=== PATIENT | female | born 1955 | race American Indian/Alaskan Native ===

== ENCOUNTER 2019-03-14 10:26 | Inpatient (IN) | payer MEDICAID ==
[2019-03-14] MEDS ORDERED: ATROVENT IH ONE (12:49)
[2019-03-14] MEDS ORDERED: PROVENTIL IH ONE (12:49)
[2019-03-14] MEDS ORDERED: NORCO 5/325 PO ONE (12:50)
[2019-03-14] MEDS ORDERED: SOLU-Medrol IV ONE (12:50)
[2019-03-14] MEDS ORDERED: MAGNESIUM SULFATE 2GM/50ML 2 GM/50 ML BAG IV ONE (12:59)
--- NOTE | 2019-03-14 13:05 | Emergency Department Report ---
ED Shortness of Breath HPI - General Chief Complaint: Dyspnea/Respdistress Stated Complaint: COPD/BACK PAIN Time Seen by Provider: 03/14/19 12:38 Source: patient Mode of arrival: Ambulatory Limitations: No Limitations - History of Present Illness Initial Comments: 63-year-old female with past medical history of HIV (compliant with antiretrovirals), COPD (on 3 L of home oxygen), hepatitis C, breast cancer and lung cancer ( both currently in remission) presents to the Hospital with complaints of wheezing, cough, shortness of breath for over 2 weeks. Cough is occasionally productive of yellow sputum. No fever but chills reported. Patient states that her dyspnea worsens exertion and decreased exertional tolerance noted. He complains of a pulling sensation to her chest with deep inspiration and coughing. Denies previous history of intubations. Her doctors affiliated with [facility] also c/o of back pain for several months with recent mild dysuria as her medical record review, in December 2017 patient had a CD4 count of 127. She denies a diagnosis of AIDS and states she has only been diagnosed with HIV. She denies daily Bactrim or antibiotic use. Not recall if she has had a more recent CD4 count or viral load testing - Related Data Previous Rx's Medication Instructions Recorded Last Taken Type ALBUTEROL NEB's [Proventil 0.083% 2.5 mg IH TIDRT #60 nebu 10/29/18 Unknown Rx NEBS] Budesonide/Formoterol Fumarate 10.2 gm IH BID #60 hfa.aer.ad 10/29/18 Unknown Rx [Symbicort 160-4.5 Mcg Inhaler] Ipratropium/Albuterol Sulfate 1 ampul IH Q8HR #60 ampul.neb 10/29/18 Unknown Rx [DUONEB *Not for PRN Use*] Ondansetron [Zofran ODT TAB] 4 mg PO Q8HR #15 tab.rapdis 10/29/18 Unknown Rx Prednisone [predniSONE 10 mg 10 mg PO .TAPER #1 tab.ds.pk 10/29/18 Unknown Rx (6-Day Pack, 21 Tabs)] oxyCODONE /ACETAMINOPHEN [Percocet 2 tab PO Q6H PRN #12 tablet 10/29/18 Unknown Rx 5/325 mg] Albuterol Sulfate [Albuterol 0.63% 0.63 mg IH Q4HR PRN #2 ml 11/25/18 Unknown Rx NEBS] Albuterol Sulfate [Proair 90 mcg IH Q4HR PRN #2 aer.pow.ba 11/25/18 Unknown Rx Respiclick] Doxycycline [Vibramycin] 100 mg PO Q12HR #10 capsule 11/25/18 Unknown Rx Ipratropium [Atrovent NEB] 0.5 mg IH Q4HR #2 ml 11/25/18 Unknown Rx predniSONE [Deltasone] 40 mg PO QDAY #8 tab 11/25/18 Unknown Rx Allergies Allergy/AdvReac Type Severity Reaction Status Date / Time Penicillins Allergy Headache Verified 01/02/18 22:28 ED Review of Systems ROS: Stated complaint: COPD/BACK PAIN Other details as noted in HPI Comment: All other systems reviewed and negative ED Past Medical Hx - Past Medical History Hx Hypertension: Yes Hx CVA: No Hx Heart Attack/AMI: No Hx Congestive Heart Failure: No Hx Diabetes: No Hx Deep Vein Thrombosis: No Hx Pulmonary Embolism: No Hx GERD: No Hx Liver Disease: No Hx Renal Disease: No Hx Sickle Cell Disease: No Hx Arthritis: No Hx Headaches / Migraines: No Hx Seizures: No Hx Kidney Stones: No Hx Psychiatric Treatment: No Hx Asthma: Yes Hx COPD: Yes Hx Tuberculosis: No Hx Dementia: No Hx HIV: Yes Additional medical history: Breast cancer,lung cancer, Hep C - Surgical History Hx Coronary Stent: No Hx Open Heart Surgery: No Hx Pacemaker: No Hx Internal Defibrillator: No Hx Cholecystectomy: No Hx Appendectomy: No Hx Breast Surgery: Yes (right breast) Additional Surgical History: mastectomy right breast - Social History Smoking Status: Never Smoker Substance Use Type: None - Medications Home Medications: Home Medications Medication Instructions Recorded Confirmed Last Taken Type ALBUTEROL NEB's [Proventil 0.083% 2.5 mg IH TIDRT #60 nebu 10/29/18 Unknown Rx NEBS] Budesonide/Formoterol Fumarate 10.2 gm IH BID #60 hfa.aer.ad 10/29/18 Unknown Rx [Symbicort 160-4.5 Mcg Inhaler] Ipratropium/Albuterol Sulfate 1 ampul IH Q8HR #60 ampul.neb 10/29/18 Unknown Rx [DUONEB *Not for PRN Use*] Ondansetron [Zofran ODT TAB] 4 mg PO Q8HR #15 tab.rapdis 10/29/18 Unknown Rx Prednisone [predniSONE 10 mg 10 mg PO .TAPER #1 tab.ds.pk 10/29/18 Unknown Rx (6-Day Pack, 21 Tabs)] oxyCODONE /ACETAMINOPHEN [Percocet 2 tab PO Q6H PRN #12 tablet 10/29/18 Unknown Rx 5/325 mg] Albuterol Sulfate [Albuterol 0.63% 0.63 mg IH Q4HR PRN #2 ml 11/25/18 Unknown Rx NEBS] Albuterol Sulfate [Proair 90 mcg IH Q4HR PRN #2 aer.pow.ba 11/25/18 Unknown Rx Respiclick] Doxycycline [Vibramycin] 100 mg PO Q12HR #10 capsule 11/25/18 Unknown Rx Ipratropium [Atrovent NEB] 0.5 mg IH Q4HR #2 ml 11/25/18 Unknown Rx predniSONE [Deltasone] 40 mg PO QDAY #8 tab 11/25/18 Unknown Rx ED Physical Exam - General Limitations: No Limitations - Other Other exam information: General: No limitations, patient is alert in no acute distress Head exam: Atraumatic, normocephalic Eyes exam: Normal appearance ENT: Moist mucous membrane, normal oropharynx without thrush Neck exam: Normal inspection, full range of motion, no meningismus nontender Respiratory exam: Diminished bilateral breath sounds without wheezing, rales, or crackles. Positive tachypnea Cardiovascular: Normal rate and rhythm, normal heart sounds Abdomen: Soft, nondistended, and nontender, with normal bowel sounds, no rebound, or guarding Extremity: Full range of motion normal inspection no deformity, no calf tenderness or edema Back: Normal Inspection, full range of motion, no tenderness Neurologic: Alert, oriented x3, cranial nerves intact, no motor or sensory deficit Psychiatric: normal affect, normal mood Skin: Warm, dry, intact ED Course Vital Signs 03/14/19 03/14/19 03/14/19 10:41 12:48 13:03 Temperature 99.0 F Pulse Rate 116 H 74 Pulse Rate [ 95 H Anterior Bilateral Throughout] Respiratory 26 H 16 Rate Respiratory 20 Rate [Anterior Bilateral Throughout] Blood Pressure 126/84 107/75 [Right] O2 Sat by Pulse 93 96 Oximetry 03/14/19 14:29 Temperature Pulse Rate Pulse Rate [ 90 Anterior Bilateral Throughout] Respiratory Rate Respiratory 20 Rate [Anterior Bilateral Throughout] Blood Pressure [Right] O2 Sat by Pulse Oximetry ED Medical Decision Making - Lab Data Result diagrams: 03/14/19 12:52 03/14/19 12:58 Lab Results 03/14/19 03/14/19 03/14/19 Range/Units 12:52 12:58 12:58 WBC 4.2 L (4.5-11.0) K/mm3 RBC 4.27 (3.65-5.03) M/mm3 Hgb 13.3 (10.1-14.3) gm/dl Hct 40.6 (30.3-42.9) % MCV 95 (79-97) fl MCH 31 (28-32) pg MCHC 33 (30-34) % RDW 13.8 (13.2-15.2) % Plt Count 246 (140-440) K/mm3 Lymph % (Auto) 36.1 H (13.4-35.0) % [place] % (Auto) 8.3 H (0.0-7.3) % Eos % (Auto) 0.3 (0.0-4.3) % Baso % (Auto) 0.8 (0.0-1.8) % Lymph # 1.5 (1.2-5.4) K/mm3 [place] # 0.3 (0.0-0.8) K/mm3 Eos # 0.0 (0.0-0.4) K/mm3 Baso # 0.0 (0.0-0.1) K/mm3 Seg Neutrophils % 54.5 (40.0-70.0) % Seg Neutrophils # 2.3 (1.8-7.7) K/mm3 PT 12.7 (12.2-14.9) Sec. INR 0.90 (0.87-1.13) Sodium 141 (137-145) mmol/L Potassium 4.7 (3.6-5.0) mmol/L Chloride 102.7 (98-107) mmol/L Carbon Dioxide 30 (22-30) mmol/L Anion Gap 13 mmol/L BUN 8 (7-17) mg/dL Creatinine 0.5 L (0.7-1.2) mg/dL Estimated GFR > 60 ml/min BUN/Creatinine Ratio 16 % Glucose 96 (65-100) mg/dL Calcium 8.4 (8.4-10.2) mg/dL - EKG Data -: EKG Interpreted by Me EKG shows normal: sinus rhythm, axis (qrs 60), QRS complexes (qrsd 64), ST-T waves (no stemi) Rate: tachycardia (102) - Radiology Data Radiology results: report reviewed cxr pa and lat: + copd - Medical Decision Making improving but still significant dyspnea on exertion tx with mag, solumedrol, nebs no infiltrate will admit to hospitalist for copd exacerbation urine pending at dispo - Differential Diagnosis copd, pneumonia, pe, chf, bronchitis, uti Critical Care Time: No Critical care attestation.: If time is entered above; I have spent that time in minutes in the direct care of this critically ill patient, excluding procedure time. ED Disposition Clinical Impression: COPD exacerbation, HIV (human immunodeficiency virus infection) Disposition: 09 OP ADMIT IP TO THIS HOSP Is pt being admited?: Yes Condition: Stable Time of Disposition: 15:30 (Dr Yap/hosp)
[2019-03-14 13:06] LABS: Basophils % (Auto) 0.8 % (0.0-1.8); Eosinophils % (Auto) 0.3 % (0.0-4.3); Hematocrit 40.6 % (30.3-42.9); Hemoglobin 13.3 gm/dl (10.1-14.3); Lymphocytes # (Auto) 1.5 K/mm3 (1.2-5.4); Lymphocytes % (Auto) 36.1 % (13.4-35.0); Mean Corpuscular HGB Conc 33 % (30-34); Mean Corpuscular Volume 95 fl (79-97); Monocytes # (Auto) 0.3 K/mm3 (0.0-0.8); Monocytes % (Auto) 8.3 % (0.0-7.3); Platelet Count 246 K/mm3 (140-440); Red Blood Count 4.27 M/mm3 (3.65-5.03); Red Cell Distribution Width 13.8 % (13.2-15.2)
[2019-03-14 13:16] LABS: INR 0.9 (0.87-1.13)
[2019-03-14 13:26] LABS: BUN/Creatinine Ratio 16; Blood Urea Nitrogen 8 mg/dL (7-17); Calcium 8.4 mg/dL (8.4-10.2); Hemolysis Index 91
--- NOTE | 2019-03-14 14:37 | XRay Report ---
CHEST XRAY, 2 VIEWS: History: Short of breath, HIV, COPD. Findings: There is mild diffuse interstitial coarsening. The lungs are hyperexpanded but clear. No infiltrate, pleural fluid or pneumothorax is detected. Focal scarring in the right upper lobe is unchanged since 11/25/18. The cardiac silhouette and pulmonary vasculature are within normal limits for technique. The bony thorax is unremarkable. IMPRESSION: Changes consistent with COPD. No acute cardiopulmonary process.
[2019-03-14 15:50] LABS: Bilirubin,Urine NEG (Negative); Blood,Urine SM (Negative); Color,Urine Yellow (Yellow); Mucus,Urine FEW /HPF; Protein,Urine <15 mg/dL mg/dL (Negative); Urobilinogen,Urine < 2.0 mg/dL (<2.0)
--- NOTE | 2019-03-14 15:58 | History and Physical Report ---
History of Present Illness Chief complaint: I cant breathe, and it hurts History of present illness: 63 YO Female with HIV, COPD, Chronic Respiratory Failure on 3L Home Oxygen, HCV, BrCa, Lung Cancer presents to ED for evaluation. Pt states that she has experienced shortness of breath over the past 2 weeks, with increased productive cough productive of yellow sputum. Pt acknowledges increased nebulizer therapy without relief, dypsnea on exertion, decreased exercise tolerance, as well as worsening dypsnea at rest, and well as chest discomfort with deep breathing. Pt transported to [facility] ED via private vehicle. Pt seen and evaluated in ED and found to have Acute on Chronic Respiratory Failure secondary to COPD exacerbation, HIV syndrome. Pt admitted to Medical floor. Pt symptoms improved in ED with supplemental oxygen, nebulizer therapy. Pt denies fever, chills, CP, Palpitations, NVD, Trauma, Skin Rash, Hemoptysis, Syncope, or recent ill contacts. Prior admission on 10/28/18 reviewed. All listed medication reconciled at time of exam. Past History Past Medical History: cancer, COPD, hepatitis, HIV/AIDS Past Surgical History: Other (Right Mastectomy) Social history: Family history: hypertension Medications and Allergies Allergies Allergy/AdvReac Type Severity Reaction Status Date / Time Penicillins Allergy Headache Verified 01/02/18 22:28 Home Medications Medication Instructions Recorded Confirmed Last Taken Type Budesonide/Formoterol Fumarate 10.2 gm IH BID #60 hfa.aer.ad 10/29/18 03/14/19 Unknown Rx [Symbicort 160-4.5 Mcg Inhaler] Albuterol Sulfate [Albuterol 0.63% 0.63 mg IH Q4HR PRN #2 ml 11/25/18 03/14/19 Unknown Rx NEBS] Ipratropium [Atrovent NEB] 0.5 mg IH Q4HR #2 ml 11/25/18 03/14/19 Unknown Rx Dolutegravir [Tivicay] 50 mg PO DAILY 03/14/19 03/14/19 Unknown History Emtricitabine/Tenofov Alafenam 1 each PO DAILY 03/14/19 03/14/19 Unknown History [Descovy 200-25 mg Tablet] amLODIPine [Norvasc] 5 mg PO DAILY 03/14/19 03/14/19 Unknown History Review of Systems Constitutional: no weight loss, no weight gain, no fever, no chills, no sweats, no night sweats Ears, nose, mouth and throat: no ear pain, no tinnitis, no decreased hearing, no nose pain, no nasal congestion Breasts: no change in shape, no swelling, no mass Cardiovascular: no chest pain, no orthopnea, no palpitations, no rapid/irregular heart beat, no edema Respiratory: cough, cough with sputum, excessive sputum, shortness of breath, dyspnea on exertion, wheezing, pleurisy, no sleep apnea Gastrointestinal: no abdominal pain, no nausea, no vomiting, no diarrhea, no constipation Genitourinary Female: no pelvic pain, no menorrhagia, no difficulty voiding Rectal: no pain, no incontinence, no bleeding Musculoskeletal: no neck stiffness, no neck pain, no shooting arm pain, no low back pain, no shooting leg pain Integumentary: no rash, no pruritis, no redness, no sores, no wounds Neurological: no head injury, no transient paralysis, no paralysis, no weakness, no parathesias, no numbness Psychiatric: no anxiety, no change in sleep habits, no insomnia, no change in appetite, no suicidal ideation Endocrine: no cold intolerance, no polyphagia, no polydipsia, no nocturia, no flushing Hematologic/Lymphatic: no easy bruising, no easy bleeding, no lymphadenopathy, no lymphedema Allergic/Immunologic: no urticaria, no wheezing, no persistent infections Exam - Constitutional Vitals: Temp Pulse Resp BP Pulse Ox 99.0 F 90 20 107/75 96 03/14/19 10:41 03/14/19 14:29 03/14/19 14:29 03/14/19 12:48 03/14/19 12:48 General appearance: Present: mild distress, disheveled - EENT Eyes: Present: PERRL ENT: hearing intact, clear oral mucosa - Neck Neck: Present: supple, normal ROM - Respiratory Respiratory effort: labored Respiratory: bilateral: diminished, rhonchi - Cardiovascular Heart Sounds: Present: S1 & S2. Absent: rub, click - Extremities Extremities: pulses symmetrical, No edema Peripheral Pulses: within normal limits - Abdominal General gastrointestinal: Present: soft, non-tender, non-distended, normal bowel sounds Female genitourinary: Present: normal - Integumentary Integumentary: Present: clear, warm, dry - Musculoskeletal Musculoskeletal: gait normal, strength equal bilaterally - Psychiatric Psychiatric: appropriate mood/affect, intact judgment & insight - Neurologic Neurologic: CNII-XII intact, moves all extremities Results - Labs CBC & Chem 7: 03/14/19 12:52 03/14/19 12:58 Labs: Abnormal lab results 03/14/19 03/14/19 03/14/19 Range/Units 12:52 12:58 Unknown WBC 4.2 L (4.5-11.0) K/mm3 Lymph % (Auto) 36.1 H (13.4-35.0) % [place] % (Auto) 8.3 H (0.0-7.3) % Creatinine 0.5 L (0.7-1.2) mg/dL Ur Specific [place] 1.038 H (1.003-1.030) Assessment and Plan - Patient Problems (1) Acute and chronic respiratory failure Current Visit: Yes Status: Acute Qualifiers: Respiratory failure complication: hypoxia Qualified Code(s): J96.21 - Acute and chronic respiratory failure with hypoxia Plan to address problem: Supplemental oxygen, chest x ray, nebulizer therapy, NIPPV as clinically indicated, pulse oximetry, CT Angio chest, (2) COPD exacerbation Current Visit: Yes Status: Acute Plan to address problem: IV steroid therapy, IV antibiotic therapy, chest x ray, nebulizer therapy, NIPPV as clinically indicated, (3) HIV (human immunodeficiency virus infection) Current Visit: Yes Status: Acute Plan to address problem: continue HAART therapy, outpatient ID F/U care. (4) DVT prophylaxis Current Visit: Yes Status: Acute Plan to address problem: SCD to BLE while in bed. Pt ambulating independently
[2019-03-14] MEDS ORDERED: ZOFRAN IV PRN (16:02)
[2019-03-14] MEDS ORDERED: SODIUM CHLORIDE FLUSH SYRINGE 10 ML IV PRN (16:02)
[2019-03-14] MEDS ORDERED: NON-FORMULARY (Albuterol Sulfate [Albuterol 0.63% Nebs] 0.63 MG) IH PRN (16:02)
[2019-03-14] MEDS ORDERED: TYLENOL PO PRN (16:02)
[2019-03-14] MEDS ORDERED: PERCOCET 5/325 PO PRN (16:24)
[2019-03-14] MEDS: MORPHINE IV PRN ×2 (16:34→21:52)
[2019-03-14] MEDS ORDERED: PROVENTIL IH PRN (16:40)
[2019-03-14] MEDS: ATROVENT IH SCH ×3 (16:57→20:18)
[2019-03-14] MEDS: ZITHROMAX 500 MG in NACL 0.9% 250ML 250 ML IV SCH (17:42)
--- NOTE | 2019-03-14 17:44 | Cat Scan Report ---
PROCEDURE: CT ANGIO CHEST TECHNIQUE : Enhanced CT of the chest at 1.25 mm axial intervals following a pulmonary embolism protoc ol. Coronal and sagittal imaging were also obtained. Coronal oblique MIP projections were obtained. CT DOSE LENGTH PRODUCT: 365.4 mGycm CONTRAST: Intravenous contrast given HISTORY: dyspnea PRIORS: CT chest 10/28/2018 FINDINGS: There is no evidence for pulmonary embolism in the main pulmonary artery, right and left pulmonary ar teries or their major distributions. However, CT does not exclude distal pulmonary emboli. There is e nlargement of the main pulmonary artery trunk which is stable. It measures 4 cm in diameter. There is an incidental anatomic variant with the right subclavian artery extending off the aortic arc h, distal to the main 3 arteries and tracking posterior to the esophagus, unchanged. There are bullous changes present in both upper lobes medially. Linear scarring with surgical clips i n the lateral right upper lobe are noted. These findings are stable. Otherwise, the lung parenchyma are expanded and clear with no evidence for new parenchymal nodules, i nfiltrates, congestion, or pleural effusion. There is no evidence for mediastinal, hilar, or axillary adenopathy. No evidence for ventricular chamber enlargement is seen. Images through the lung bases include the upper abdomen which show atherosclerotic changes of the pro ximal abdominal aorta. The aorta measures 3.5 x 2.7 cm above the level of the renal arteries. There i s a 2.1 cm low-density cyst in the inferior spleen. Bony structures demonstrate a healed rib fracture involving the lateral right sixth rib, stable. IMPRESSION: 1. No evidence for pulmonary embolism. Stable exam 2. Stable enlarged pulmonary arterial trunk 3. Chronic scarring and bullous changes in the upper lobes This document is electronically signed by Rhianna Garcia MD., March 14 2019 05:42:29 PM ET
[2019-03-14] MEDS: BROVANA NEBU IH SCH (20:18)
[2019-03-14] MEDS: PULMICORT IH SCH (20:18)
[2019-03-14] MEDS: SODIUM CHLORIDE FLUSH SYRINGE 10 ML IV SCH (21:51)
[2019-03-14] MEDS ORDERED: NON-FORMULARY (Budesonide/Formoterol Fumarate [Symbicort 160-4.5 Mcg Inhaler] 10.2 GM) IH SCH (22:00)
[2019-03-15] MEDS: ATROVENT IH SCH ×4 (01:16→13:14)
[2019-03-15] MEDS: SOLU-Medrol IV SCH ×3 (01:17→21:21)
[2019-03-15 06:31] LABS: Basophils % (Auto) 0.2 % (0.0-1.8); Hematocrit 34.5 % (30.3-42.9); Hemoglobin 11.4 gm/dl (10.1-14.3); Lymphocytes # (Auto) 0.6 K/mm3 (1.2-5.4); Lymphocytes % (Auto) 18.4 % (13.4-35.0); Mean Corpuscular HGB Conc 33 % (30-34); Mean Corpuscular Volume 95 fl (79-97); Monocytes % (Auto) 1.3 % (0.0-7.3); Platelet Count 248 K/mm3 (140-440); Red Blood Count 3.65 M/mm3 (3.65-5.03)
[2019-03-15 06:53] LABS: BUN/Creatinine Ratio 25; Blood Urea Nitrogen 10 mg/dL (7-17); Calcium 8.4 mg/dL (8.4-10.2); Hemolysis Index 2
[2019-03-15] MEDS: PULMICORT IH SCH ×2 (07:31→20:02)
[2019-03-15] MEDS: BROVANA NEBU IH SCH ×2 (07:31→20:02)
[2019-03-15] MEDS: MORPHINE IV PRN ×2 (08:13→15:22)
[2019-03-15] MEDS ORDERED: EMTRIVA PO SCH (10:00)
[2019-03-15] MEDS ORDERED: TIVICAY PO SCH (10:00)
--- NOTE | 2019-03-15 10:08 | Progress Note ---
Assessment and Plan Assessment and plan: Acute on chronic resp failure due to COPD exacerbation supplemental Oxygen COPD exacerbation Solumedrol duoneb q 6h albuterol prn HIV/AIDS Cont HAART History of breast cancer history of lung cancer History Interval history: Less shortness of breath, Low back pain Hospitalist Physical - Physical exam Narrative exam: Gen: Not in acute distress, lying in bed HEENT: Normocephalic, atraumatic Neck: supple, no JVD Heart: S1 and S2 reg, no murmurs, rubs or gallop Lungs: Decreased breath sounds bilaterally, bilat rhonchi Abd: soft, non tender, non distended, normal BS Ext: No edema, no clubbing, no cyanosis, Musculosk: tender lower back Neuro: AAO x 3, no focal signs, moves all ext Psych:Normal mood - Constitutional Vitals: Temp Pulse Resp BP Pulse Ox 98.3 F 77 18 104/64 98 03/15/19 05:09 03/15/19 07:33 03/15/19 07:33 03/14/19 20:22 03/15/19 07:33 General appearance: Present: mild distress, disheveled Results - Labs CBC & Chem 7: 03/15/19 05:40 03/15/19 05:40 Labs: Laboratory Last Values WBC 3.2 K/mm3 (4.5-11.0) L 03/15/19 05:40 RBC 3.65 M/mm3 (3.65-5.03) 03/15/19 05:40 Hgb 11.4 gm/dl (10.1-14.3) 03/15/19 05:40 Hct 34.5 % (30.3-42.9) D 03/15/19 05:40 MCV 95 fl (79-97) 03/15/19 05:40 MCH 31 pg (28-32) 03/15/19 05:40 MCHC 33 % (30-34) 03/15/19 05:40 RDW 14.0 % (13.2-15.2) 03/15/19 05:40 Plt Count 248 K/mm3 (140-440) 03/15/19 05:40 Lymph % (Auto) 18.4 % (13.4-35.0) 03/15/19 05:40 [place] % (Auto) 1.3 % (0.0-7.3) 03/15/19 05:40 Eos % (Auto) 0.0 % (0.0-4.3) 03/15/19 05:40 Baso % (Auto) 0.2 % (0.0-1.8) 03/15/19 05:40 Lymph # 0.6 K/mm3 (1.2-5.4) L 03/15/19 05:40 [place] # 0.0 K/mm3 (0.0-0.8) 03/15/19 05:40 Eos # 0.0 K/mm3 (0.0-0.4) 03/15/19 05:40 Baso # 0.0 K/mm3 (0.0-0.1) 03/15/19 05:40 Seg Neutrophils % 80.1 % (40.0-70.0) H 03/15/19 05:40 Seg Neutrophils # 2.6 K/mm3 (1.8-7.7) 03/15/19 05:40 PT 12.7 Sec. (12.2-14.9) 03/14/19 12:58 INR 0.90 (0.87-1.13) 03/14/19 12:58 Sodium 141 mmol/L (137-145) 03/15/19 05:40 Potassium 4.2 mmol/L (3.6-5.0) 03/15/19 05:40 Chloride 102.1 mmol/L (98-107) 03/15/19 05:40 Carbon Dioxide 29 mmol/L (22-30) 03/15/19 05:40 Anion Gap 14 mmol/L 03/15/19 05:40 BUN 10 mg/dL (7-17) 03/15/19 05:40 Creatinine 0.4 mg/dL (0.7-1.2) L 03/15/19 05:40 Estimated GFR > 60 ml/min 03/15/19 05:40 BUN/Creatinine Ratio 25 % 03/15/19 05:40 Glucose 120 mg/dL (65-100) H 03/15/19 05:40 Calcium 8.4 mg/dL (8.4-10.2) 03/15/19 05:40 Urine Color Yellow (Yellow) 03/14/19 Unknown Urine Turbidity Clear (Clear) 03/14/19 Unknown Urine pH 5.0 (5.0-7.0) 03/14/19 Unknown Ur Specific [place] 1.038 (1.003-1.030) H 03/14/19 Unknown Urine Protein <15 mg/dl mg/dL (Negative) 03/14/19 Unknown Urine Glucose (UA) Neg mg/dL (Negative) 03/14/19 Unknown Urine Ketones 20 mg/dL (Negative) 03/14/19 Unknown Urine Blood Sm (Negative) 03/14/19 Unknown Urine Nitrite Neg (Negative) 03/14/19 Unknown Urine Bilirubin Neg (Negative) 03/14/19 Unknown Urine Urobilinogen < 2.0 mg/dL (<2.0) 03/14/19 Unknown Ur Leukocyte Esterase Neg (Negative) 03/14/19 Unknown Urine WBC (Auto) 4.0 /HPF (0.0-6.0) 03/14/19 Unknown Urine RBC (Auto) 5.0 /HPF (0.0-6.0) 03/14/19 Unknown U Epithel Cells (Auto) < 1.0 /HPF (0-13.0) 03/14/19 Unknown Urine Mucus Few /HPF 03/14/19 Unknown Active Medications - Current Medications Current Medications: Generic Name Dose Route Start Last Admin Trade Name Freq PRN Reason Stop Dose Admin Acetaminophen 650 mg 03/14/19 16:02 Tylenol PO Q4H PRN Pain MILD(1-3)/Fever >100.5/DE LEON Albuterol 2.5 mg 03/14/19 16:40 03/14/19 16:57 Proventil IH 2.5 mg Q4HRT PRN Administration Shortness Of Breath Amlodipine Besylate 5 mg 03/15/19 10:00 Norvasc PO DAILY ELLIE Arformoterol Tartrate 15 mcg 03/14/19 20:00 03/15/19 07:31 Brovana Nebu IH 15 mcg Q12HRT ELLIE Administration Budesonide 1 mg 03/14/19 20:00 03/15/19 07:31 Pulmicort IH 1 mg Q12HRT ELLIE Administration Azithromycin 500 mg/ Sodium 250 mls @ 250 mls/hr 03/14/19 18:00 03/14/19 17:42 Chloride IV 250 mls/hr Q24H ELLIE Administration Ipratropium [place] 0.5 mg 03/15/19 08:00 03/15/19 07:31 Atrovent IH 0.5 mg TIDRT ELLIE Administration Methylprednisolone Sodium Succinate 40 mg 03/15/19 01:00 03/15/19 01:17 Solu-Medrol IV 40 mg Q12H ELLIE Administration Miscellaneous Medication 1 each 03/15/19 10:00 Emtricitabine/Tenofov Alafenam [Descovy 200-25 Mg Tablet] PO DAILY [facility] Morphine Sulfate 2 mg 03/14/19 16:23 03/15/19 08:13 Morphine IV 2 mg Q4H PRN Administration Pain, Moderate (4-6) Ondansetron HCl 4 mg 03/14/19 16:02 03/15/19 08:13 Zofran IV 4 mg Q8H PRN Administration Nausea And Vomiting Oxycodone/Acetaminophen 1 tab 03/14/19 16:24 Percocet 5/325 PO Q6H PRN Pain, Moderate (4-6) Sodium Chloride 10 ml 03/14/19 22:00 03/14/19 21:51 Sodium Chloride Flush Syringe 10 Ml IV 10 ml BID ELLIE Administration Sodium Chloride 10 ml 03/14/19 16:02 Sodium Chloride Flush Syringe 10 Ml IV PRN PRN LINE FLUSH
[2019-03-15 11:30] LABS: Bilirubin,Urine NEG (Negative); Blood,Urine NEG (Negative); Color,Urine Yellow (Yellow); Mucus,Urine 2+ /HPF; Urobilinogen,Urine < 2.0 mg/dL (<2.0)
--- NOTE | 2019-03-15 13:35 | XRay Report ---
AP AND LATERAL LUMBOSACRAL SPINE: History: Low back pain. Osteopenia is evident. No evidence for compression deformity, subluxation or bone lesion. Mild diffuse facet arthropathy is noted. The disc spaces are normal height. IMPRESSION: Osteopenia. Mild lumbar spondylosis.
[2019-03-15] MEDS: NORVASC PO SCH (15:22)
[2019-03-15] MEDS: SODIUM CHLORIDE FLUSH SYRINGE 10 ML IV SCH ×2 (19:52→21:22)
[2019-03-15] MEDS: ZITHROMAX 500 MG in NACL 0.9% 250ML 250 ML IV SCH (19:52)
[2019-03-15] MEDS: DUONEB *Not for PRN Use IH SCH (20:22)
[2019-03-16] MEDS: SOLU-Medrol IV SCH ×3 (04:29→20:42)
[2019-03-16] MEDS: DUONEB *Not for PRN Use IH SCH ×4 (08:22→21:51)
[2019-03-16] MEDS: PULMICORT IH SCH ×2 (08:22→19:35)
[2019-03-16] MEDS: BROVANA NEBU IH SCH ×2 (08:22→19:35)
[2019-03-16] MEDS: MORPHINE IV PRN ×2 (09:10→15:36)
[2019-03-16] MEDS: ZOFRAN IV PRN ×2 (09:10→15:36)
--- NOTE | 2019-03-16 10:14 | Progress Note ---
Assessment and Plan Assessment and plan: Acute on chronic resp failure due to COPD exacerbation supplemental Oxygen COPD exacerbation Solumedrol duoneb q 6h albuterol prn Acute bronchitis Fever Obtain blood culture HIV/AIDS Cont HAART History of breast cancer history of lung cancer History Interval history: Less shortness of breath, Low back pain Hospitalist Physical - Physical exam Narrative exam: Gen: Not in acute distress, lying in bed HEENT: Normocephalic, atraumatic Neck: supple, no JVD Heart: S1 and S2 reg, no murmurs, rubs or gallop Lungs: Decreased breath sounds bilaterally, bilat rhonchi Abd: soft, non tender, non distended, normal BS Ext: No edema, no clubbing, no cyanosis, Musculosk: tender lower back Neuro: AAO x 3, no focal signs, moves all ext Psych:Normal mood - Constitutional Vitals: Temp Pulse Resp BP Pulse Ox 98.5 F 75 20 106/75 97 03/16/19 04:19 03/16/19 08:50 03/16/19 08:50 03/16/19 04:19 03/16/19 08:25 Results - Labs CBC & Chem 7: 03/15/19 05:40 03/15/19 05:40 Labs: Laboratory Last Values WBC 3.2 K/mm3 (4.5-11.0) L 03/15/19 05:40 RBC 3.65 M/mm3 (3.65-5.03) 03/15/19 05:40 Hgb 11.4 gm/dl (10.1-14.3) 03/15/19 05:40 Hct 34.5 % (30.3-42.9) D 03/15/19 05:40 MCV 95 fl (79-97) 03/15/19 05:40 MCH 31 pg (28-32) 03/15/19 05:40 MCHC 33 % (30-34) 03/15/19 05:40 RDW 14.0 % (13.2-15.2) 03/15/19 05:40 Plt Count 248 K/mm3 (140-440) 03/15/19 05:40 Lymph % (Auto) 18.4 % (13.4-35.0) 03/15/19 05:40 [place] % (Auto) 1.3 % (0.0-7.3) 03/15/19 05:40 Eos % (Auto) 0.0 % (0.0-4.3) 03/15/19 05:40 Baso % (Auto) 0.2 % (0.0-1.8) 03/15/19 05:40 Lymph # 0.6 K/mm3 (1.2-5.4) L 03/15/19 05:40 [place] # 0.0 K/mm3 (0.0-0.8) 03/15/19 05:40 Eos # 0.0 K/mm3 (0.0-0.4) 03/15/19 05:40 Baso # 0.0 K/mm3 (0.0-0.1) 03/15/19 05:40 Seg Neutrophils % 80.1 % (40.0-70.0) H 03/15/19 05:40 Seg Neutrophils # 2.6 K/mm3 (1.8-7.7) 03/15/19 05:40 PT 12.7 Sec. (12.2-14.9) 03/14/19 12:58 INR 0.90 (0.87-1.13) 03/14/19 12:58 Sodium 141 mmol/L (137-145) 03/15/19 05:40 Potassium 4.2 mmol/L (3.6-5.0) 03/15/19 05:40 Chloride 102.1 mmol/L (98-107) 03/15/19 05:40 Carbon Dioxide 29 mmol/L (22-30) 03/15/19 05:40 Anion Gap 14 mmol/L 03/15/19 05:40 BUN 10 mg/dL (7-17) 03/15/19 05:40 Creatinine 0.4 mg/dL (0.7-1.2) L 03/15/19 05:40 Estimated GFR > 60 ml/min 03/15/19 05:40 BUN/Creatinine Ratio 25 % 03/15/19 05:40 Glucose 120 mg/dL (65-100) H 03/15/19 05:40 Calcium 8.4 mg/dL (8.4-10.2) 03/15/19 05:40 Urine Color Yellow (Yellow) 03/14/19 Unknown Urine Turbidity Clear (Clear) 03/14/19 Unknown Urine pH 5.0 (5.0-7.0) 03/14/19 Unknown Ur Specific [place] 1.038 (1.003-1.030) H 03/14/19 Unknown Urine Protein <15 mg/dl mg/dL (Negative) 03/14/19 Unknown Urine Glucose (UA) Neg mg/dL (Negative) 03/14/19 Unknown Urine Ketones 20 mg/dL (Negative) 03/14/19 Unknown Urine Blood Sm (Negative) 03/14/19 Unknown Urine Nitrite Neg (Negative) 03/14/19 Unknown Urine Bilirubin Neg (Negative) 03/14/19 Unknown Urine Urobilinogen < 2.0 mg/dL (<2.0) 03/14/19 Unknown Ur Leukocyte Esterase Neg (Negative) 03/14/19 Unknown Urine WBC (Auto) 4.0 /HPF (0.0-6.0) 03/14/19 Unknown Urine RBC (Auto) 5.0 /HPF (0.0-6.0) 03/14/19 Unknown U Epithel Cells (Auto) < 1.0 /HPF (0-13.0) 03/14/19 Unknown Urine Mucus Few /HPF 03/14/19 Unknown Active Medications - Current Medications Current Medications: Generic Name Dose Route Start Last Admin Trade Name Freq PRN Reason Stop Dose Admin Acetaminophen 650 mg 03/14/19 16:02 Tylenol PO Q4H PRN Pain MILD(1-3)/Fever >100.5/DE LEON Albuterol 2.5 mg 03/14/19 16:40 03/14/19 16:57 Proventil IH 2.5 mg Q4HRT PRN Administration Shortness Of Breath Albuterol/Ipratropium 1 ampul 03/15/19 20:00 03/16/19 08:22 Duoneb *Not For Prn Use* IH 1 ampul Q6HRT ELLIE Administration Amlodipine Besylate 5 mg 03/15/19 10:00 03/15/19 15:22 Norvasc PO 5 mg DAILY ELLIE Administration Arformoterol Tartrate 15 mcg 03/14/19 20:00 03/16/19 08:22 Brovana Nebu IH 15 mcg Q12HRT ELLIE Administration Budesonide 1 mg 03/14/19 20:00 03/16/19 08:22 Pulmicort IH 1 mg Q12HRT ELLIE Administration Azithromycin 500 mg/ Sodium 250 mls @ 250 mls/hr 03/14/19 18:00 03/15/19 19:52 Chloride IV 250 mls/hr Q24H ELLIE Administration Methylprednisolone Sodium Succinate 40 mg 03/15/19 20:00 03/16/19 04:29 Solu-Medrol IV 40 mg Q8H ELLIE Administration Miscellaneous Medication 1 each 03/15/19 10:00 Emtricitabine/Tenofov Alafenam [Descovy 200-25 Mg Tablet] PO DAILY [facility] Morphine Sulfate 2 mg 03/14/19 16:23 03/16/19 09:10 Morphine IV 2 mg Q4H PRN Administration Pain, Moderate (4-6) Ondansetron HCl 4 mg 03/15/19 18:05 03/16/19 09:10 Zofran IV 4 mg Q6H PRN Administration Nausea And Vomiting Oxycodone/Acetaminophen 1 tab 03/14/19 16:24 03/15/19 12:14 Percocet 5/325 PO 1 tab Q6H PRN Administration Pain, Moderate (4-6) Sodium Chloride 10 ml 03/14/19 22:00 03/15/19 21:22 Sodium Chloride Flush Syringe 10 Ml IV 10 ml BID ELLIE Administration Sodium Chloride 10 ml 03/14/19 16:02 Sodium Chloride Flush Syringe 10 Ml IV PRN PRN LINE FLUSH
[2019-03-16] MEDS ORDERED: AFLURIA QUAD 2018-2019 SYRINGE IM ONE (12:00)
[2019-03-16] MEDS: NORVASC PO SCH (13:00)
[2019-03-16] MEDS: TIVICAY PO SCH (15:21)
[2019-03-16] MEDS: SODIUM CHLORIDE FLUSH SYRINGE 10 ML IV SCH ×2 (15:22→21:21)
[2019-03-16] MEDS: NON-FORMULARY (Emtricitabine/Tenofov Alafenam [Descovy 200-25 Mg Tablet] 1 EACH) PO SCH (15:24)
[2019-03-16] MEDS: PROTONIX IV SCH (17:54)
[2019-03-16] MEDS: ZITHROMAX 500 MG in NACL 0.9% 250ML 250 ML IV SCH (17:54)
[2019-03-17] MEDS: DUONEB *Not for PRN Use IH SCH ×3 (02:03→13:19)
[2019-03-17] MEDS: SOLU-Medrol IV SCH ×2 (04:34→13:04)
[2019-03-17] MEDS: MORPHINE IV PRN (07:56)
[2019-03-17] MEDS: ZOFRAN IV PRN (08:28)
[2019-03-17] MEDS: PULMICORT IH SCH (08:49)
[2019-03-17] MEDS: BROVANA NEBU IH SCH (08:49)
[2019-03-17] MEDS: NORVASC PO SCH (09:43)
[2019-03-17] MEDS: PROTONIX IV SCH (09:44)
[2019-03-17] MEDS: TIVICAY PO SCH (09:46)
[2019-03-17] MEDS: NON-FORMULARY (Emtricitabine/Tenofov Alafenam [Descovy 200-25 Mg Tablet] 1 EACH) PO SCH (09:46)
[2019-03-17] MEDS: SODIUM CHLORIDE FLUSH SYRINGE 10 ML IV SCH (09:47)
[2019-03-17] MEDS ORDERED: ZITHROMAX PO SCH (10:00)
--- NOTE | 2019-03-17 12:31 | Discharge Summary ---
Providers - Providers Date of Admission: 03/14/19 16:02 Date of discharge: 03/17/19 Attending physician: JANICE DUFFY Primary care physician: MAJOR ROMERO MD Hospitalization Condition: Fair Hospital course: Patient is 63 yo female with HIV, COPD, Chronic Respiratory Failure on 3L Home Oxygen, HCV, breast cancer, lung cancer. She presented to ED with shortness of breath, cough with yellow sputum. She was seen and evaluated in ED and diagnosed with acute on chronic respiratory failure due to COPD exacerbation. She was started on solu-medrol, Duoneb and admitted. She improved in few days, shortness of breath improved. She was re-evaluated on 03/17, was close to baseline, then discharged to follow as outpatient. Total time spent on discharge, 32 mins. Disposition: TO HOME OR SELFCARE - Discharge Diagnoses (1) Acute and chronic respiratory failure Status: Acute Qualifiers: Respiratory failure complication: hypoxia Qualified Code(s): J96.21 - Acute and chronic respiratory failure with hypoxia (2) COPD exacerbation Status: Acute (3) HIV (human immunodeficiency virus infection) Status: Acute (4) History of cancer Status: Acute (5) Shortness of breath Status: Acute (6) Lung cancer Status: Acute (7) Breast cancer Status: Acute Core Measure Documentation - Palliative Care Palliative Care/ Comfort Measures: Not Applicable - Core Measures Any of the following diagnoses?: none Exam - Constitutional Vitals: Temp Pulse Resp BP Pulse Ox 98.8 F 64 18 147/95 98 03/17/19 05:28 03/17/19 09:43 03/17/19 08:49 03/17/19 09:43 03/17/19 08:52 Plan Activity: no restrictions Diet: low fat, low cholesterol, low salt Additional Instructions: 1.Follow up with PCP in 1 week. 2.Continue home Oxygen continuous. Follow up with: PRIMARY CARE, [Primary Care Provider] - 7 Days Forms: Accompanied Note, Work/School Release Form(ED) Prescriptions: Albuterol Sulfate [Albuterol 0.63% NEBS] 0.63 mg IH Q4HR PRN 30 Days ml PRN Reason: Wheezing Famotidine [Pepcid] 20 mg PO BID #30 tablet Promethazine [Phenergan] 25 mg PO Q6HR PRN #20 tab PRN Reason: Nausea or vomiting Prednisone [predniSONE 5 mg (6-Day Pack, 21 Tabs)] 5 mg PO .TAPER #1 tab.ds.pk
[2019-03-17 12:33] VITALS: BP 115/74
[2019-03-18] MEDS ORDERED: PROTONIX PO SCH (10:00)
== END 2019-03-17 14:25 | disposition home or self-care (01) | DRG 189 ==
LOC: ED 10:26 → 3A 16:02
PROVIDERS: ADMIT Internal Medicine; ATTEND Internal Medicine
DX: J96.21 Acute and chronic respiratory failure with hypoxia (principal); B20 Human immunodeficiency virus [HIV] disease; J44.1 Chronic obstructive pulmonary disease with (acute) exacerbation; J20.9 Acute bronchitis, unspecified; J44.0 Chronic obstructive pulmonary disease with (acute) lower respiratory infection; B19.20 Unspecified viral hepatitis C without hepatic coma; I10 Essential (primary) hypertension; Z85.3 Personal history of malignant neoplasm of breast; Z85.118 Personal history of other malignant neoplasm of bronchus and lung; Z99.81 Dependence on supplemental oxygen; Z90.11 Acquired absence of right breast and nipple; Z82.49 Family history of ischemic heart disease and other diseases of the circulatory system; Z88.0 Allergy status to penicillin; Z79.899 Other long term (current) drug therapy
CPT/HCPCS: 36415; 71046; 71275; 72100; 80048; 81001; 85025; 85610; 87040; 87116; 90686; 93005; 93010; 94640; 94644; 94760; G0378; C9113; J0456; J2270; J2405; J2920; J2930; J3475; J7050; Q9967

== ENCOUNTER 2019-06-28 20:56 | Inpatient (IN) | payer MEDICAID ==
[2019-06-28] MEDS ORDERED: ATROVENT IH ONE (21:02)
[2019-06-28] MEDS ORDERED: PROVENTIL IH ONE (21:02)
[2019-06-28] MEDS ORDERED: NACL 0.9% 500 ML 500 ML IV ONE ×2 (21:02→21:04)
[2019-06-28] MEDS ORDERED: BABY ASPIRIN PO ONE (21:05)
--- NOTE | 2019-06-28 21:05 | Emergency Department Report ---
ED Shortness of Breath HPI - General Chief Complaint: Dyspnea/Respdistress Stated Complaint: MEAGAN Time Seen by Provider: 06/28/19 21:01 Source: patient, family, EMS (ems notes not available at time of chart dictation), RN notes reviewed, old records reviewed Mode of arrival: Stretcher Limitations: No Limitations - History of Present Illness Initial Comments: Verbal report received from EMS. This is a 64-year-old female. She reportedly follows at [facility]. Her past medical history includes HIV, COPD, hepatitis C, breast cancer, lung ca ncer, chronic respiratory failure, on 3 L of home oxygen The patient is known to this provider previously. The patient is brought to the hospital by EMS for shortness of breath. Apparently, the patient was saturating at 88% on room air, and tripoding upon EMS arrival. EMS gave 20 mg of Decadron in the field, started CPAP, gave albuterol, and magnesium. The patient indicates that she is improved but still symptomatic. She indicates that she has shortness of breath, dry cough, and central chest wall pain. She indicates the pain does not radiate anywhere. She cannot tell me if she always has this pain with her presumed COPD exacerbations. The patient indicates that her shortness of breath is constant, worsens with physical exertion decreases with rest, and decreases with the aforementioned therapies. Symptoms started earlier on today. MD Complaint: shortness of breath, cough, chest pain Improves With: oxygen, rest, bronchodilators, upright position, medication Worsens With: exertion Known History Of: COPD, HIV - Related Data Home Oxygen Therapy: Yes Home Oxygen Amount: 3 Liters Home Medications Medication Instructions Recorded Confirmed Last Taken Dolutegravir [Tivicay] 50 mg PO DAILY 03/14/19 03/14/19 Unknown Emtricitabine/Tenofov Alafenam 1 each PO DAILY 03/14/19 03/14/19 Unknown [Descovy 200-25 mg Tablet] amLODIPine [Norvasc] 5 mg PO DAILY 03/14/19 03/14/19 Unknown Previous Rx's Medication Instructions Recorded Last Taken Type Budesonide/Formoterol Fumarate 10.2 gm IH BID #60 hfa.aer.ad 10/29/18 Unknown Rx [Symbicort 160-4.5 Mcg Inhaler] Ipratropium [Atrovent NEB] 0.5 mg IH Q4HR #2 ml 11/25/18 Unknown Rx Albuterol Sulfate [Albuterol 0.63% 0.63 mg IH Q4HR PRN 30 Days ml 03/17/19 Unknown Rx NEBS] Famotidine [Pepcid] 20 mg PO BID #30 tablet 03/17/19 Unknown Rx Prednisone [predniSONE 5 mg (6-Day 5 mg PO .TAPER #1 tab.ds.pk 03/17/19 Unknown Rx Pack, 21 Tabs)] Promethazine [Phenergan] 25 mg PO Q6HR PRN #20 tab 03/17/19 Unknown Rx Allergies Allergy/AdvReac Type Severity Reaction Status Date / Time Penicillins Allergy Headache Verified 01/02/18 22:28 ED Review of Systems ROS: Stated complaint: MEAGAN Other details as noted in HPI Comment: Unobtainable due to pts medical conditions Constitutional: malaise Eyes: denies: eye discharge ENT: denies: epistaxis Respiratory: shortness of breath, wheezing Cardiovascular: chest pain Gastrointestinal: denies: abdominal pain Neurological: weakness ED Past Medical Hx - Past Medical History Hx Hypertension: Yes Hx CVA: No Hx Heart Attack/AMI: No Hx Congestive Heart Failure: No Hx Diabetes: No Hx Deep Vein Thrombosis: No Hx Pulmonary Embolism: No Hx GERD: No Hx Liver Disease: Yes (hepatitis C) Hx Renal Disease: No Hx Sickle Cell Disease: No Hx Arthritis: No Hx Headaches / Migraines: No Hx Seizures: No Hx Kidney Stones: No Hx Psychiatric Treatment: No Hx Asthma: Yes Hx COPD: Yes Hx Tuberculosis: No Hx Dementia: No Hx HIV: Yes Additional medical history: Breast cancer,lung cancer, Hep C - Surgical History Hx Coronary Stent: No Hx Open Heart Surgery: No Hx Pacemaker: No Hx Internal Defibrillator: No Hx Cholecystectomy: No Hx Appendectomy: No Hx Breast Surgery: Yes (right breast) Additional Surgical History: mastectomy right breast - Social History Smoking Status: Former Smoker Substance Use Type: None - Medications Home Medications: Home Medications Medication Instructions Recorded Confirmed Last Taken Type Budesonide/Formoterol Fumarate 10.2 gm IH BID #60 hfa.aer.ad 10/29/18 03/14/19 Unknown Rx [Symbicort 160-4.5 Mcg Inhaler] Ipratropium [Atrovent NEB] 0.5 mg IH Q4HR #2 ml 11/25/18 03/14/19 Unknown Rx Dolutegravir [Tivicay] 50 mg PO DAILY 03/14/19 03/14/19 Unknown History Emtricitabine/Tenofov Alafenam 1 each PO DAILY 03/14/19 03/14/19 Unknown History [Descovy 200-25 mg Tablet] amLODIPine [Norvasc] 5 mg PO DAILY 03/14/19 03/14/19 Unknown History Albuterol Sulfate [Albuterol 0.63% 0.63 mg IH Q4HR PRN 30 Days ml 03/17/19 Unk nown Rx NEBS] Famotidine [Pepcid] 20 mg PO BID #30 tablet 03/17/19 Unknown Rx Prednisone [predniSONE 5 mg (6-Day 5 mg PO .TAPER #1 tab.ds.pk 03/17/19 Unknown Rx Pack, 21 Tabs)] Promethazine [Phenergan] 25 mg PO Q6HR PRN #20 tab 03/17/19 Unknown Rx ED Physical Exam - General Limitations: Physical Limitation General appearance: alert, anxious, in distress - Head Head exam: Present: atraumatic, normocephalic - Eye Eye exam: Present: normal appearance, EOMI - ENT ENT exam: Present: normal orophraynx, mucous membranes moist, normal external ear exam - Neck Neck exam: Present: normal inspection, full ROM. Absent: tenderness, m eningismus - Respiratory Respiratory exam: Present: respiratory distress, rhonchi, decreased breath sounds - Cardiovascular Cardiovascular Exam: Present: normal rhythm, tachycardia, normal heart sounds. Absent: systolic murmur, diastolic murmur, rubs, gallop - GI/Abdominal GI/Abdominal exam: Present: soft. Absent: distended, tenderness, guarding, rebound, rigid, pulsatile mass - Extremities Exam Extremities exam: Present: normal inspection, full ROM, other (2+ pulses noted in the bilateral upper, lower extremities. Compartments soft. No long bony tenderness. The pelvis is stable.). Absent: pedal edema, joint swelling, calf tenderness - Back Exam Back exam: Present: normal inspection, full ROM. Absent: tenderness, CVA tenderness (R), CVA tenderness (L), muscle spasm, vertebral tenderness - Neurological Exam Neurological exam: Present: alert, other (Extraocular movements intact. Tongue midline. No facial droop. Facial sensation intact to light touch in the V1, V2, V3 distribution bilaterally. 5 and 5 strength in 4 extremities.. Sensation is intact to light touch in 4 extremities.). Absent: motor sensory deficit - Psychiatric Psychiatric exam: Present: anxious - Skin Skin exam: Present: warm. Absent: rash ED Course Vital Signs 06/28/19 06/28/19 06/28/19 20:59 21:05 21:24 Temperature 97.4 F L Pulse Rate 96 H 78 Pulse Rate [ Anterior] Respiratory 26 H 26 H 18 Rate Respiratory Rate [Anterior] Blood Pressure 115/81 Blood Pressure 128/91 [Left] O2 Sat by Pulse 96 96 100 Oximetry 06/28/19 06/29/19 06/29/19 21:56 00:15 02:26 Temperature Pulse Rate 85 88 Pulse Rate [ 99 H Anterior] Respiratory 16 18 Rate Respiratory 18 Rate [Anterior] Blood Pressure 118/81 Blood Pressure 116/75 [Left] O2 Sat by Pulse 100 96 Oximetry - Reevaluation(s) Reevaluation #1: 06/28/19 22:26 Differential diagnosis, including not limited to: COPD exacerbation, pneumonia, bronchitis, pulmonary hypertension, pulmonary embolism Assessment and plan: 64-year-old female, heart rate greater than 90 bpm, respiratory rate 26 bpm, x-ray of the chest suggest hyperinflated lungs, suspect patient experiencing natural expected progression of underlying COPD. In addition, has multiple PE risk factors, including breast cancer, lung cancer, and HIV. D-dimer elevated, therefore, CT scan of the chest is ordered. However, we will withhold systemic anticoagulation at this time, given clinical history and evaluation of prior charts, this appears to be similar to prior presentations. Patient placed on BiPAP, and appears to be clinically improving. Reevaluation #2: 06/29/19 00:20 X-ray the chest is negative for acute disease. The patient indicates that she feels improved. CT scan of the chest is pending at this time. Reevaluation #3: 06/29/19 02:57 CT scan of the chest is negative for acute disease. The patient is clinically improving. The Hospital physician, Dr. Vicente has accepted the patient to the medical service. ED Medical Decision Making - Lab Data Result diagrams: 06/28/19 21:09 06/28/19 21:09 Vital Signs 06/28/19 06/28/19 06/28/19 20:59 21:05 21:24 Temperature 97.4 F L Pulse Rate 96 H 78 Pulse Rate [ Anterior] Respiratory 26 H 26 H 18 Rate Respiratory Rate [Anterior] Blood Pressure 115/81 Blood Pressure 128/91 [Left] O2 Sat by Pulse 96 96 100 Oximetry 06/28/19 21:56 Temperature Pulse Rate Pulse Rate [ 99 H Anterior] Respiratory Rate Respiratory 18 Rate [Anterior] Blood Pressure Blood Pressure [Left] O2 Sat by Pulse Oximetry Lab Results 06/28/19 06/28/19 06/28/19 Range/Units 21:09 21:09 21:09 WBC 9.3 (4.5-11.0) K/mm3 RBC 3.94 (3.65-5.03) M/mm3 Hgb 12.5 (10.1-14.3) gm/dl Hct 37.7 (30.3-42.9) % MCV 96 (79-97) fl MCH 32 (28-32) pg MCHC 33 (30-34) % RDW 14.9 (13.2-15.2) % Plt Count 296 (140-440) K/mm3 Lymph % (Auto) 15.2 (13.4-35.0) % [place] % (Auto) 10.4 H (0.0-7.3) % Eos % (Auto) 0.5 (0.0-4.3) % Baso % (Auto) 0.5 (0.0-1.8) % Lymph # 1.4 (1.2-5.4) K/mm3 [place] # 1.0 H (0.0-0.8) K/mm3 Eos # 0.0 (0.0-0.4) K/mm3 Baso # 0.0 (0.0-0.1) K/mm3 Seg Neutrophils % 73.4 H (40.0-70.0) % Seg Neutrophils # 6.8 (1.8-7.7) K/mm3 PT 12.0 L (12.2-14.9) Sec. INR 0.91 (0.87-1.13) D-Dimer 303.93 H (0-234) ng/mlDDU Sodium 141 (137-145) mmol/L Potassium 4.0 (3.6-5.0) mmol/L Chloride 100.3 (98-107) mmol/L Carbon Dioxide 33 H (22-30) mmol/L Anion Gap 12 mmol/L BUN 5 L (7-17) mg/dL Creatinine 0.3 L (0.7-1.2) mg/dL Estimated GFR > 60 ml/min BUN/Creatinine Ratio 17 % Glucose 127 H (65-100) mg/dL Calcium 8.4 (8.4-10.2) mg/dL Magnesium 3.70 H (1.7-2.3) mg/dL Troponin T (0.00-0.029) ng/mL 06/28/19 Range/Units 21:09 WBC (4.5-11.0) K/mm3 RBC (3.65-5.03) M/mm3 Hgb (10.1-14.3) gm/dl Hct (30.3-42.9) % MCV (79-97) fl MCH (28-32) pg MCHC (30-34) % RDW (13.2-15.2) % Plt Count (140-440) K/mm3 Lymph % (Auto) (13.4-35.0) % [place] % (Auto) (0.0-7.3) % Eos % (Auto) (0.0-4.3) % Baso % (Auto) (0.0-1.8) % Lymph # (1.2-5.4) K/mm3 [place] # (0.0-0.8) K/mm3 Eos # (0.0-0.4) K/mm3 Baso # (0.0-0.1) K/mm3 Seg Neutrophils % (40.0-70.0) % Seg Neutrophils # (1.8-7.7) K/mm3 PT (12.2-14.9) Sec. INR (0.87-1.13) D-Dimer (0-234) ng/mlDDU Sodium (137-145) mmol/L Potassium (3.6-5.0) mmol/L Chloride (98-107) mmol/L Carbon Dioxide (22-30) mmol/L Anion Gap mmol/L BUN (7-17) mg/dL Creatinine (0.7-1.2) mg/dL Estimated GFR ml/min BUN/Creatinine Ratio % Glucose (65-100) mg/dL Calcium (8.4-10.2) mg/dL Magnesium (1.7-2.3) mg/dL Troponin T < 0.010 (0.00-0.029) ng/mL - EKG Data -: EKG Interpreted by Me EKG shows normal: sinus rhythm Rate: normal - EKG Data 06/28/19 22:29 EKG shows sinus rhythm, 88 bpm, motion artifact, atrial enlargement, low voltage lead 1, aVL, the EKG is abnormal, the EKG is not consistent with ST elevation myocardial infarction, the EKG is unchanged from prior EKG from February 2019. - Radiology Data Radiology results: pending, image reviewed interpreted by me: X-ray of the chest shows hyperinflated lungs, right-sided hilar adenopathy, chronic changes, emphysema Critical Care Time: Yes Critical care time in (mins) excluding proc time.: 35 Critical care attestation.: If time is entered above; I have spent that time in minutes in the direct care of this critically ill patient, excluding procedure time. ED Disposition Clinical Impression: History of cancer, Acute and chronic respiratory failure, COPD exacerbation, Chest pain, History of HIV infection, SIRS (systemic inflammatory response syndrome) Disposition: OP ADMIT IP TO THIS HOSP Is pt being admited?: Yes Does the pt Need Aspirin: Yes Condition: Fair Instructions: Chest Pain (ED), Chronic Obstructive Pulmonary Disease (ED) Referrals: NORMA WILLIAM MD [Primary Care Provider] - 3-5 Days
[2019-06-28 21:25] LABS: Basophils % (Auto) 0.5 % (0.0-1.8); Eosinophils % (Auto) 0.5 % (0.0-4.3); Hematocrit 37.7 % (30.3-42.9); Hemoglobin 12.5 gm/dl (10.1-14.3); Lymphocytes # (Auto) 1.4 K/mm3 (1.2-5.4); Lymphocytes % (Auto) 15.2 % (13.4-35.0); Mean Corpuscular HGB Conc 33 % (30-34); Mean Corpuscular Volume 96 fl (79-97); Monocytes % (Auto) 10.4 % (0.0-7.3); Platelet Count 296 K/mm3 (140-440); Red Blood Count 3.94 M/mm3 (3.65-5.03); Red Cell Distribution Width 14.9 % (13.2-15.2)
[2019-06-28 21:34] LABS: INR 0.91 (0.87-1.13)
[2019-06-28 21:36] LABS: BUN/Creatinine Ratio 17; Blood Urea Nitrogen 5 mg/dL (7-17); Calcium 8.4 mg/dL (8.4-10.2); Hemolysis Index 12
[2019-06-28] MEDS ORDERED: NACL 0.9% 1000 ML 1,000 ML IV ONE (22:29)
[2019-06-28] MEDS ORDERED: LEVAQUIN 500MG/100ML 500 MG/100 ML BAG IV ONE (22:29)
--- NOTE | 2019-06-28 22:32 | XRay Report ---
CHEST 1 VIEW INDICATION / CLINICAL INFORMATION: Dyspnea. COMPARISON: 03/14/2019 FINDINGS: SUPPORT DEVICES: None. HEART / MEDIASTINUM: No significant abnormality. LUNGS / PLEURA: Pulmonary hyperinflation. No superimposed acute disease. Areas of focal scarring are seen in the axillary portion of the right lung. No pneumothorax. ADDITIONAL FINDINGS: No significant additional findings. IMPRESSION: 1. COPD with no superimposed acute process. 6 Signer Name: Asher Ramos MD Signed: 06/28/2019 10:28 PM Workstation Name: [id number]
--- NOTE | 2019-06-29 02:39 | Cat Scan Report ---
CT angiography of the chest with 2-D reconstructions INDICATION: Chest pain and shortness of breath Comparison: 03/14/2019 Thin section axial images were obtained as well as 2-D reformatted MIP images in all 3 planes FINDINGS: There is no hilar or mediastinal adenopathy. No pleural or pericardial effusion. Lung windo ws show no nodules, masses or infiltrates. There is no thoracic aortic aneurysm or dissection present . Routine axial images as well as 2-D reconstructions through the pulmonary arteries show no evidence of emboli. Aberrant right subclavian artery is incidentally noted. IMPRESSION: Negative chest CTA Automated exposure control was utilized to diminish radiation dose. Signer Name: Iban Guzman MD Signed: 06/29/2019 2:34 AM Workstation Name: [id number]
--- NOTE | 2019-06-29 03:35 | History and Physical Report ---
History of Present Illness Date of examination: 06/29/19 History of present illness: 62-year-old woman with a history of COPD, asthma, HIV, hepatitis C, lung and breast cancer was brought to the emergency room with complaints of shortness of breath not relieved with her nebulizer treatments at home. Her chest feels ti ght, complaining of a cough productive of yellow phlegm, subjective fever and chills. Patient was given Decadron, and the present treatment started on BiPAP Review of systems Constitutional: no weight loss Ears, eyes, nose, mouth and throat: no nasal congestion, no nasal discharge, no sinus pressure, no vision change, no red eye. Neck: No neck pain or rigidity. Cardiovascular: no palpitations Respiratory: + cough, shortness of breath Gastrointestinal: no abdominal pain hematochezia Genitourinary : no frequency , no hematuria Musculoskeletal: no joint swelling or muscle ache Integumentary: no rash, no pruritis Neurological: no parathesias, no numbness, no focal weakness Endocrine: no cold or heat intolerance, no polyuria or polydipsia Hematologic/Lymphatic: no easy bruising, no easy bleeding, no gland swelling Allergic/Immunologic: no urticaria, no angioedema. PAST MEDICAL HISTORY:COPD, asthma, HIV, unknown CD4 count, hepatitis C, lung and breast cancer PAST SURGICAL HISTORY: Right mastectomy, section 3 FAMILY HISTORY: Hypertension SOCIAL HISTORY: +tobacco, no alcohol, drug Medications and Allergies Allergies Allergy/AdvReac Type Severity Reaction Status Date / Time Penicillins Allergy Headache Verified 01/02/18 22:28 Home Medications Medication Instructions Recorded Confirmed Last Taken Type Budesonide/Formoterol Fumarate 10.2 gm IH BID #60 hfa.aer.ad 10/29/18 03/14/19 Unknown Rx [Symbicort 160-4.5 Mcg Inhaler] Ipratropium [Atrovent NEB] 0.5 mg IH Q4HR #2 ml 11/25/18 03/14/19 Unknown Rx Dolutegravir [Tivicay] 50 mg PO DAILY 03/14/19 03/14/19 Unknown History Emtricitabine/Tenofov Alafenam 1 each PO DAILY 03/14/19 03/14/19 Unknown History [Descovy 200-25 mg Tablet] amLODIPine [Norvasc] 5 mg PO DAILY 03/14/19 03/14/19 Unknown History Albuterol Sulfate [Albuterol 0.63% 0.63 mg IH Q4HR PRN 30 Days ml 03/17/19 Unknown Rx NEBS] Famotidine [Pepcid] 20 mg PO BID #30 tablet 03/17/19 Unknown Rx Prednisone [predniSONE 5 mg (6-Day 5 mg PO .TAPER #1 tab.ds.pk 03/17/19 Unknown Rx Pack, 21 Tabs)] Promethazine [Phenergan] 25 mg PO Q6HR PRN #20 tab 03/17/19 Unknown Rx Active Meds: Active Medications Enoxaparin Sodium (Lovenox) 30 mg SUB-Q QDAY ELLIE Exam - Physical Exam Narrative exam: General Apperance: The patient sitting in bed no acute distress HEENT: Normocephalic, atraumatic. Pupils equally round and reactive to light, extraocular movement intact, and no sclericterus or JVD or thyromegaly or nodule. Neck supple, no carotid bruit, mucous membranes moist, no exudate or erythema Heart: S1-S2, regular is rhythm Lungs:Decrease air entry, wheezing bilaterally, breathing comfortable Abdomen: Positive bowel sounds, soft, nontender, nondistended, no organomegaly Extremities: No edema cyanosis clubbing Skin: no rash, nodule, warm and dry Neuro:CN 2 -12 intact, motor/sensory intact, speech is fluent - Constitutional Vitals: Temp Pulse Resp BP Pulse Ox 97.4 F L 88 18 116/75 96 06/28/19 20:59 06/29/19 02:26 06/29/19 02:26 06/29/19 02:26 06/29/19 02:26 Results - Labs CBC & Chem 7: 06/28/19 21:09 06/28/19 21:09 Labs: Abnormal lab results 06/28/19 06/28/19 06/28/19 Range/Units 21:09 21:09 21:09 [place] % (Auto) 10.4 H (0.0-7.3) % [place] # 1.0 H (0.0-0.8) K/mm3 Seg Neutrophils % 73.4 H (40.0-70.0) % PT 12.0 L (12.2-14.9) Sec. D-Dimer 303.93 H (0-234) ng/mlDDU Carbon Dioxide 33 H (22-30) mmol/L BUN 5 L (7-17) mg/dL Creatinine 0.3 L (0.7-1.2) mg/dL Glucose 127 H (65-100) mg/dL Lactic Acid (0.7-2.0) mmol/L Magnesium 3.70 H (1.7-2.3) mg/dL 06/28/19 Range/Units 22:46 [place] % (Auto) (0.0-7.3) % [place] # (0.0-0.8) K/mm3 Seg Neutrophils % (40.0-70.0) % PT (12.2-14.9) Sec. D-Dimer (0-234) ng/mlDDU Carbon Dioxide (22-30) mmol/L BUN (7-17) mg/dL Creatinine (0.7-1.2) mg/dL Glucose (65-100) mg/dL Lactic Acid 0.50 L (0.7-2.0) mmol/L Magnesium (1.7-2.3) mg/dL - Imaging and Cardiology EKG: image reviewed CT scan - chest: report reviewed Assessment and Plan Assessment Acute Respiratory Failure COPD/asthma exacerbation with acute bronchitis HIV/hepatitis C History of lung and breast cancer Plan Admit to medicine Start high-dose IV steroids, nebulized treatments, IV antibiotic Cardiac enzymes, continue BiPAP Continue appropriate outpatient medications DVT prophylaxis
[2019-06-29] MEDS ORDERED: ZOFRAN IV PRN (04:01)
[2019-06-29] MEDS ORDERED: SODIUM CHLORIDE FLUSH SYRINGE 10 ML IV PRN (04:01)
[2019-06-29] MEDS ORDERED: SOLU-Medrol ONE (04:58)
[2019-06-29] MEDS: SOLU-Medrol IV SCH ×4 (04:59→23:06)
[2019-06-29 05:00] LABS: Creatine Kinase MB 3.6 ng/mL (0.0-4.0)
[2019-06-29] MEDS: TYLENOL PO PRN ×3 (06:03→14:57)
[2019-06-29 06:52] LABS: Basophils % (Auto) 0.1 % (0.0-1.8); Lymphocytes # (Auto) 0.5 K/mm3 (1.2-5.4); Lymphocytes % (Auto) 14.8 % (13.4-35.0); Mean Corpuscular HGB Conc 33 % (30-34); Mean Corpuscular Volume 97 fl (79-97); Monocytes % (Auto) 0.9 % (0.0-7.3); Platelet Count 282 K/mm3 (140-440); Red Blood Count 3.83 M/mm3 (3.65-5.03); Red Cell Distribution Width 14.7 % (13.2-15.2)
[2019-06-29 07:46] LABS: BUN/Creatinine Ratio 13; Blood Urea Nitrogen 5 mg/dL (7-17)
[2019-06-29 07:47] LABS: Calcium 8.4 mg/dL (8.4-10.2); Hemolysis Index 5
[2019-06-29] MEDS: DUONEB *Not for PRN Use IH SCH ×3 (08:00→20:35)
[2019-06-29] MEDS: LOVENOX SUB-Q SCH (10:25)
[2019-06-29] MEDS: SODIUM CHLORIDE FLUSH SYRINGE 10 ML IV SCH ×2 (10:26→22:50)
[2019-06-29] MEDS: ZITHROMAX 500 MG in NACL 0.9% 250ML 250 ML IV SCH (11:26)
[2019-06-29] MEDS ORDERED: PNEUMOVAX 23 IM ONE (12:00)
[2019-06-29 12:52] LABS: Creatine Kinase MB 4.7 ng/mL (0.0-4.0)
[2019-06-29] MEDS: FIORICET PO PRN ×2 (16:51→22:58)
[2019-06-30] MEDS: DUONEB *Not for PRN Use IH SCH ×4 (02:44→20:17)
[2019-06-30] MEDS: SOLU-Medrol IV SCH ×4 (06:26→23:06)
[2019-06-30] MEDS: FIORICET PO PRN ×2 (08:31→23:13)
[2019-06-30] MEDS: ZITHROMAX 500 MG in NACL 0.9% 250ML 250 ML IV SCH (10:45)
[2019-06-30] MEDS: LOVENOX SUB-Q SCH (10:45)
--- NOTE | 2019-06-30 12:09 | Progress Note ---
Assessment and Plan Assessment and plan: 62-year-old woman with a history of COPD, asthma, HIV, hepatitis C, lung and breast cancer was brought to the emergency room with complaints of shortness of breath not relieved with her nebulizer treatments at home. Her chest feels tight, complaining of a cough productive of yellow phlegm, subjective fever and chills. Patient was given Decadron, and the present treatment started on BiPAP PAST MEDICAL HISTORY:COPD, asthma, HIV, unknown CD4 count, hepatitis C, lung and breast cancer Acute Respiratory Failure COPD/asthma exacerbation with acute bronchitis HIV/hepatitis C History of lung and breast cancer Plan Admit to medicine high-dose IV steroids, nebulized treatments, IV antibiotic follows up at [facility], cont OP mgt Cardiac enzymes, continue BiPAP Continue appropriate outpatient medications DVT prophylaxis Hospitalist Physical - Constitutional Vitals: Temp Pulse Resp BP Pulse Ox 98.8 F 81 22 124/77 98 06/30/19 07:45 06/30/19 08:41 06/30/19 08:39 06/30/19 07:45 06/30/19 08:30 Results - Labs CBC & Chem 7: 06/29/19 05:41 06/30/19 13:25 Labs: Laboratory Last Values WBC 3.5 K/mm3 (4.5-11.0) L 06/29/19 05:41 RBC 3.83 M/mm3 (3.65-5.03) 06/29/19 05:41 Hgb 12.0 gm/dl (10.1-14.3) 06/29/19 05:41 Hct 37.0 % (30.3-42.9) 06/29/19 05:41 MCV 97 fl (79-97) 06/29/19 05:41 MCH 32 pg (28-32) 06/29/19 05:41 MCHC 33 % (30-34) 06/29/19 05:41 RDW 14.7 % (13.2-15.2) 06/29/19 05:41 Plt Count 282 K/mm3 (140-440) 06/29/19 05:41 Lymph % (Auto) 14.8 % (13.4-35.0) 06/29/19 05:41 Porter % (Auto) 0.9 % (0.0-7.3) 06/29/19 05:41 Eos % (Auto) 0.0 % (0.0-4.3) 06/29/19 05:41 Baso % (Auto) 0.1 % (0.0-1.8) 06/29/19 05:41 Lymph # 0.5 K/mm3 (1.2-5.4) L 06/29/19 05:41 Porter # 0.0 K/mm3 (0.0-0.8) 06/29/19 05:41 Eos # 0.0 K/mm3 (0.0-0.4) 06/29/19 05:41 Baso # 0.0 K/mm3 (0.0-0.1) 06/29/19 05:41 Seg Neutrophils % 84.2 % (40.0-70.0) H 06/29/19 05:41 Seg Neutrophils # 2.9 K/mm3 (1.8-7.7) 06/29/19 05:41 PT 12.0 Sec. (12.2-14.9) L 06/28/19 21:09 INR 0.91 (0.87-1.13) 06/28/19 21:09 303.93 ng/mlDDU (0-234) H 06/28/19 21:09 Sodium 142 mmol/L (137-145) 06/29/19 05:41 Potassium 5.2 mmol/L (3.6-5.0) H D 06/29/19 05:41 Chloride 103.4 mmol/L (98-107) 06/29/19 05:41 Carbon Dioxide 29 mmol/L (22-30) 06/29/19 05:41 15 mmol/L 06/29/19 05:41 BUN 5 mg/dL (7-17) L 06/29/19 05:41 0.4 mg/dL (0.7-1.2) L 06/29/19 05:41 Estimated GFR > 60 ml/min 06/29/19 05:41 13 % 06/29/19 05:41 Glucose 135 mg/dL (65-100) H 06/29/19 05:41 Lactic Acid 0.50 mmol/L (0.7-2.0) L 06/28/19 22:46 Calcium 8.4 mg/dL (8.4-10.2) 06/29/19 05:41 Magnesium 3.70 mg/dL (1.7-2.3) H 06/28/19 21:09 170 units/L (91-180) 06/28/19 22:44 129 units/L (30-135) 06/29/19 10:36 CK-MB (CK-2) 4.7 ng/mL (0.0-4.0) H 06/29/19 10:36 CK-MB (CK-2) Rel Index 3.6 (0-4) 06/29/19 10:36 0.010 ng/mL (0.00-0.029) 06/29/19 10:36 Active Medications - Current Medications Current Medications: Generic Name Dose Route Start Last Admin Trade Name Freq PRN Reason Stop Dose Admin Acetaminophen 650 mg 06/29/19 04:01 06/29/19 14:57 Tylenol PO 650 mg Q4H PRN Administration Pain MILD(1-3)/Fever >100.5/DE ELON Acetaminophen/Butalbital/Caffeine 2 tab 06/29/19 14:55 06/30/19 08:31 Fioricet PO 2 tab Q4H PRN Administration Headache Albuterol/Ipratropium 1 ampul 06/29/19 08:00 06/30/19 08:30 Duoneb *Not For Prn Use* IH 1 ampul Q6HRT ELLIE Administration Enoxaparin Sodium 30 mg 06/29/19 10:00 06/30/19 10:45 Lovenox SUB-Q 30 mg QDAY ELLIE Administration Azithromycin 500 mg/ Sodium 250 mls @ 250 mls/hr 06/29/19 10:00 06/30/19 10:45 Chloride IV 250 mls/hr Q24HR ELLIE Administration Protocol Methylprednisolone Sodium Succinate 125 mg 06/29/19 05:00 06/30/19 06:26 Solu-Medrol IV 125 mg Q6HR ELLIE Administration Ondansetron HCl 4 mg 06/29/19 04:01 Zofran IV Q8H PRN Nausea And Vomiting Sodium Chloride 10 ml 06/29/19 10:00 06/29/19 22:50 Sodium Chloride Flush Syringe 10 Ml IV 10 ml BID ELLIE Administration Sodium Chloride 10 ml 06/29/19 04:01 Sodium Chloride Flush Syringe 10 Ml IV PRN PRN LINE FLUSH Nutrition/Malnutrition Assess - Dietary Evaluation Nutrition/Malnutrition Findings: Nutrition Notes Start: 06/29/19 16:53 Freq: Status: Active Protocol: Document 06/29/19 16:54 RM (Rec: 06/29/19 17:08 RM [id number]) Nutrition Notes Need for Assessment generated from: Low BMI Initial or Follow up Assessment Current Diagnosis COPD Other Pertinent Diagnosis HIV, SIRS, Hx CA, CP Current Diet Cardiac Labs/Tests K 5.2 Pertinent Medications Solu-Medrol Height 5 ft 6 in Weight 41.4 kg Usual Body Weight 46.36 kg [place] Body Weight (kg) 59.09 BMI 14.7 Weight change and time frame 10.7% wt loss Subjective/Other Information Screened for low BMI. Cardiac diet in place earlier today. Nurse changed diet to regular for lunch at pt request d/t pt disliking meals for cardiac diet. Per nurse CP was likely d/t COPD. Pt stated that [employer] she ate 3 small meals daily. Pt stated that her UBW was 102 lbs last month. Noted slight temporal wasting. Burn Absent Trauma Absent #1 Nutrition Diagnosis Malnutrition Etiology decreased appetite As Evidenced by Signs and Symptoms BMI 14.7, temporal wasting Is patient on ventilator? No Is Patient Ambulatory and/or Out of Bed Yes REE-([facility]-ambulatory/OOB) [ 1281.475 NUTR.[id number]] Kcal/Kg value to use for calculation 38 Approximate Energy Requirements Using 1573 kcal/Kg Calculation Used for Recommendations Kcal/kg Additional Notes Protein Needs: 62-70g (1.5-1. 7g/kg) Fluid Needs: 1 ml/kcal Nutrition Intervention Change Diet Order: Continue current Add Supplement/Snack (indicate name/kcal Ensure Enlive Vanilla 1 daily /protein ) Provides kCal: 350 Provides Protein (gm) 20 Goal #1 Meet at least 75% of calorie and protein needs via PO and ONS intakes Goal #2 K lab WNL Anticipated Discharge Needs: Unable to determine at this time Follow-Up By: 07/01/19 Additional Comments Follow for PO and ONS intakes, K lab
--- NOTE | 2019-06-30 13:33 | Consultation ---
History of Present Illness Consult date: 06/30/19 Requesting physician: REEAM TORRES Reason for consult: COPD History of present illness: PULMONARY/CCM CONSULT NOTE (Full dictation # [id number]) Please see dictated notes for full details Medications and Allergies Allergies Allergy/AdvReac Type Severity Reaction Status Date / Time Penicillins Allergy Headache Verified 01/02/18 22:28 Home Medications Medication Instructions Recorded Confirmed Last Taken Type Budesonide/Formoterol Fumarate 10.2 gm IH BID #60 hfa.aer.ad 10/29/18 03/14/19 Unknown Rx [Symbicort 160-4.5 Mcg Inhaler] Ipratropium [Atrovent NEB] 0.5 mg IH Q4HR #2 ml 11/25/18 03/14/19 Unknown Rx Dolutegravir [Tivicay] 50 mg PO DAILY 03/14/19 03/14/19 Unknown History Emtricitabine/Tenofov Alafenam 1 each PO DAILY 03/14/19 03/14/19 Unknown History [Descovy 200-25 mg Tablet] amLODIPine [Norvasc] 5 mg PO DAILY 03/14/19 03/14/19 Unknown History Albuterol Sulfate [Albuterol 0.63% 0.63 mg IH Q4HR PRN 30 Days ml 03/17/19 Unknown Rx NEBS] Famotidine [Pepcid] 20 mg PO BID #30 tablet 03/17/19 Unknown Rx Prednisone [predniSONE 5 mg (6-Day 5 mg PO .TAPER #1 tab.ds.pk 03/17/19 Unknown Rx Pack, 21 Tabs)] Promethazine [Phenergan] 25 mg PO Q6HR PRN #20 tab 03/17/19 Unknown Rx Active Meds: Active Medications Acetaminophen (Tylenol) 650 mg PO Q4H PRN PRN Reason: Pain MILD(1-3)/Fever >100.5/DE LEON Last Admin: 06/29/19 14:57 Dose: 650 mg Documented by: Acetaminophen/Butalbital/Caffeine (Fioricet) 2 tab PO Q4H PRN PRN Reason: Headache Last Admin: 06/30/19 08:31 Dose: 2 tab Documented by: Albuterol/Ipratropium (Duoneb *Not For Prn Use*) 1 ampul IH Q6HRT ELLIE Last Admin: 06/30/19 13:30 Dose: 1 ampul Documented by: Enoxaparin Sodium (Lovenox) 30 mg SUB-Q QDAY [facility] Last Admin: 06/30/19 10:45 Dose: 30 mg Documented by: Azithromycin 500 mg/ Sodium (Chloride) 250 mls @ 250 mls/hr IV Q24HR [facility]; Protocol Last Admin: 06/30/19 10:45 Dose: 250 mls/hr Documented by: Methylprednisolone Sodium Succinate (Solu-Medrol) 125 mg IV Q6HR [facility] Last Admin: 06/30/19 06:26 Dose: 125 mg Documented by: Ondansetron HCl (Zofran) 4 mg IV Q8H PRN PRN Reason: Nausea And Vomiting Sodium Chloride (Sodium Chloride Flush Syringe 10 Ml) 10 ml IV BID [facility] Last Admin: 06/29/19 22:50 Dose: 10 ml Documented by: Sodium Chloride (Sodium Chloride Flush Syringe 10 Ml) 10 ml IV PRN PRN PRN Reason: LINE FLUSH Physical Examination Vital signs: Vital Signs Temp Pulse Resp BP Pulse Ox 97.4 F L 96 H 26 H 128/91 96 06/28/19 20:59 06/28/19 20:59 06/28/19 20:59 06/28/19 20:59 06/28/19 20:59 Results - Laboratory Findings CBC and BMP: 06/29/19 05:41 06/30/19 13:25 PT/INR, D-dimer PT 12.0 Sec. (12.2-14.9) L 06/28/19 21:09 INR 0.91 (0.87-1.13) 06/28/19 21:09 303.93 ng/mlDDU (0-234) H 06/28/19 21:09 Abnormal lab findings: Abnormal Labs 06/28/19 06/28/19 06/28/19 21:09 21:09 21:09 WBC [place] % (Auto) 10.4 H Lymph # Burke # 1.0 H Seg Neutrophils % 73.4 H PT 12.0 L D-Dimer 303.93 H Potassium Carbon Dioxide 33 H BUN 5 L Creatinine 0.3 L Glucose 127 H Lactic Acid Magnesium 3.70 H CK-MB (CK-2) 06/28/19 06/29/19 06/29/19 22:46 05:41 05:41 WBC 3.5 L Burke % (Auto) Lymph # 0.5 L Burke # Seg Neutrophils % 84.2 H PT D-Dimer Potassium 5.2 H D Carbon Dioxide BUN 5 L Creatinine 0.4 L Glucose 135 H Lactic Acid 0.50 L Magnesium CK-MB (CK-2) 06/29/19 10:36 WBC Burke % (Auto) Lymph # Burke # Seg Neutrophils % PT D-Dimer Potassium Carbon Dioxide BUN Creatinine Glucose Lactic Acid Magnesium CK-MB (CK-2) 4.7 H
[2019-06-30] MEDS ORDERED: PROVENTIL IH PRN (16:38)
[2019-06-30] MEDS: SODIUM CHLORIDE FLUSH SYRINGE 10 ML IV SCH ×2 (18:28→23:07)
[2019-06-30] MEDS: PULMICORT IH SCH (20:32)
[2019-06-30] MEDS: BROVANA NEBU IH SCH (20:32)
[2019-06-30] MEDS: TYLENOL PO PRN (23:06)
--- NOTE | 2019-07-01 02:02 | Consultation ---
PULMONARY CONSULT NOTE This is in coverage for Dr. Rondon. CONSULTING PHYSICIAN: Dr. Byrnes. REASON FOR CONSULTATION: COPD exacerbation. CHIEF COMPLAINT AND HISTORY OF PRESENT ILLNESS: The patient is a 64-year-old -Armenian female with past medical history significant amongst other things for home oxygen-dependent COPD on about 2 liters nasal cannula at home as well as a diagnosis of being HIV positive and a history of lung and breast cancer, who came into the Emergency Room complaining of shortness of breath. She said it was of relatively acute onset. She complained of some chest pain at presentation. She does use her nebulizer treatments at home and states she was compliant with it. She admits to not having a director of recruitment managing her in the community. She denied any sick contacts. She denied any new leg pain or swelling either unilaterally or bilaterally or any suggestion of a deep venous thrombosis. She did admit to coughing up more phlegm than usual and that this has changed color to yellowish. She denied fevers and chills. Denied any gross or streaky hemoptysis. In the Emergency Room, she was placed on bilevel positive air pressure ventilation therapy, slowly stabilized and transferred to the medical floor, telemetry, where I stopped by to see her. When I stopped by to see her, she was lying in bed. She remained on about 3 liters nasal cannula, feeling a little bit better. She seems to think she is up-to-date on her flu and pneumonia vaccination. This really is as much of the history of presentation as I have. She does have a 10+ pack year tobacco smoking history and denies continued tobacco use. PAST MEDICAL HISTORY: COPD, HIV positive, hepatitis C, history of lung cancer and history of breast cancer. PAST SURGICAL HISTORY: She has had a right mastectomy and C-sections x 3. MEDICATIONS: She was on at the time I stopped by to see were reviewed. Pertinent medications included the following: Tylenol 650 mg p.o. q.4 hours p.r.n. mild pain or fevers, Fioricet 2 tablets p.o. q.4 hours p.r.n. severe headaches, DuoNeb nebulizer treatments nebulized q.6 hours, azithromycin 500 mg IV daily, Lovenox 30 mg subcutaneous daily, Solu-Medrol 125 mg IV q.6 hours scheduled and Zofran 4 mg IV q.8 hours p.r.n. nausea and vomiting. ALLERGIES: PENICILLINS. Nature of this allergy is unknown. DIET: Thin lady, bordering on being cachectic. Denies acute weight loss or gain in the preceding few weeks to months. FAMILY AND SOCIAL HISTORY: Lives in the community, 10+ pack year tobacco smoking history. There is a family history of hypertension. Denies alcohol or illicit drug use or abuse at this time. REVIEW OF SYSTEMS: No loss of consciousness. She did complain of near syncope before she came into the hospital. Dyspnea on exertion was the major part of her symptoms. She denies any gross hematochezia or melena. Denies gross hematuria or dysuria. No hematemesis. Denies palpitations. She denies heat or cold intolerance. Denied polydipsia, polyuria. Denies periods of unexplained sadness and/or elation as may be consistent with clinical depression or moise. Complete 13-system review of systems obtained. Pertinent positives and/or negatives as in body of history above, otherwise they are noncontributory. PHYSICAL EXAMINATION: VITAL SIGNS: At presentation in the Emergency Room, she was afebrile, temperature 97.4 degrees Fahrenheit, axillary, with a pulse of 96, respiratory rate of 26, blood pressure 129/91, O2 sats were 96%, inspired oxygen concentration at that time was not recorded. When I stopped by to see her, O2 sats were 98% that was on 2 liters nasal cannula. GENERAL: Elderly looking thin -Armenian female, normocephalic, atraumatic, talking to me in full sentences, but with mildly increased respiratory effort at rest. HEAD, EYES, EARS, NOSE AND THROAT: She is anicteric. No conjunctival erythema. Oropharynx is dry. There is a Mallampati #2 oropharynx. No gross jugular venous distention, no thyromegaly. Grossly, no palpable lymph nodes in the supraclavicular or submandibular lymph node chains. LUNGS: Auscultation of both lung mosher significant for severely diminished bilateral breath sounds, prolonged expiratory phase. No active wheezing and appears to have right lower lobe inspiratory rales. HEART: Heart sounds 1 and 2 are heard. There was regular in rate and rhythm at the time of my evaluation, without rubs or murmurs. ABDOMEN: Soft, flat. Bowel sounds positive, nontender, no palpable hepatosplenomegaly. EXTREMITIES: Without overt digital clubbing, cyanosis, or pedal edema. Dorsalis pedis pulses are 2+ bilaterally. NEUROLOGIC: Right pupil was about 5 mm, reactive to light. Left pupil was about 6-7 mm, nonreactive at that time. Extraocular muscle movements were intact. She had spontaneous movement to all 4 extremities without spasticity or fasciculations. The skin was of poor turgor, dry, without overt cellulitis or rash. PSYCHIATRIC: Mood was normal. Affect was appropriate. LABORATORY DATA: From my review: Admission white cell count 9300, hemoglobin 12.5, hematocrit 37.7, platelet count 296. No manual differential. INR was 0.91. D-dimer was slightly elevated at 303. Serum sodium 141, potassium 4.0, chloride 100, bicarbonate 33, BUN 5, creatinine 0.3, glucose was 127. Lactic acid level was within normal limits. Magnesium was high at 3.7. Her potassium was 5.2 today that has been corrected, is now 4.6. Blood cultures 2 sets, no growth to date. Chest x-ray was done. I have reviewed the report as well as the radiologist's interpretation, severe COPD with flattening of both hemidiaphragms. Questionable lesion in the right lung mid lung zones. There appears to also be a clip on the right side, likely post mastectomy, but I cannot rule out a confluence of shadows versus a lung nodule. Taking the COPD into consideration, she has borderline cardiomegaly. The aorta is uncoiled. The right main pulmonary artery trunk is enlarged. A CT angiogram of her chest was also done. I have reviewed the radiologist's interpretation as well as the film. No gross filling defects in my opinion consistent with major pulmonary emboli. There is evidence of bullous emphysematous changes. Particularly in the upper lobes bilaterally, there is an area of scarring in the left upper lobe medially that may be related to possible postradiation treatment if she did have any. No mediastinal adenopathy and then there is that area in the right lung that appears to track with the major fissure and there appears to be an opaque object in that fissure. I also have a CT angio from 2018 and the changes in her right lung apparently appear progressive. In some ways, the area of the possible radiopaque lesion is stable; however, most of the scarring in the right upper lobe appears to be somewhat improved. This is described as a 6-mm calcified granuloma in the 2018 x-ray. ASSESSMENT AND PLAN: 1. Acute chronic obstructive pulmonary disease exacerbation. 2. Possible occult pneumonia. 3. Abnormal CT scan that is chronic. 4. HIV positive. 5. Msurw-ng-eflecvl hypoxemic respiratory failure. 6. History of lung cancer. 7. History of breast cancer. PLAN: We will continue current treatments with bronchodilators. I will, however, change the DuoNebs to albuterol treatments. I will schedule them b.i.d. in the short time, but I will also go ahead and add Brovana and Pulmicort. We will continue the empiric antibiotic therapy. I think 3 days of azithromycin should be appropriate. In light of the leukopenia today with a white cell count of 3.5, I will switch her over to Levaquin monotherapy for better community-acquired pneumonia coverage. I will also get a CRP level to general helper clinical decision making. We will continue DVT prophylaxis. I will add GI prophylaxis. We will reduce the systemic steroids to 60 mg IV q.6 hours. Tobacco abstinence has been strongly counseled. Flu and pneumonia vaccination will be addressed per protocol. Sputum will be sent for Gram stain, cultures and sensitivities. Thank you very much for the consult. Dr. Byrnes will follow along and make further recommendations as picture progresses/becomes clearer. JOB# [id number] [facility]
[2019-07-01] MEDS: DUONEB *Not for PRN Use IH SCH ×2 (02:27→09:16)
[2019-07-01] MEDS: SOLU-Medrol IV SCH ×2 (05:48→12:35)
[2019-07-01 08:36] VITALS: BP 150/99
[2019-07-01] MEDS: PULMICORT IH SCH (09:15)
[2019-07-01] MEDS: BROVANA NEBU IH SCH (09:16)
[2019-07-01] MEDS ORDERED: PROVENTIL IH PRN (09:23)
[2019-07-01] MEDS: LOVENOX SUB-Q SCH (10:27)
[2019-07-01] MEDS: FIORICET PO PRN (10:28)
--- NOTE | 2019-07-01 12:03 | Discharge Summary ---
Providers - Providers Date of Admission: 06/29/19 04:16 Attending physician: REEMA TORRES MD 06/29/19 15:15 Consult to Physician [CONS] Routine Comment: Consulting Provider: AKBAR ADAMS Physician Instructions: Reason For Exam: copd [facility] Condition: Fair Hospital course: 62-year-old woman with a history of COPD, asthma, HIV, hepatitis C, lung and breast cancer was brought to the emergency room with complaints of shortness of breath not relieved with her nebulizer treatments at home. Her chest feels tight, complaining of a cough productive of yellow phlegm, subjective fever and chills. Patient was given Decadron, and the present treatment started on BiPAP PAST MEDICAL HISTORY:COPD, asthma, HIV, unknown CD4 count, hepatitis C, lung and breast cancer Acute Respiratory Failure COPD/asthma exacerbation with acute bronchitis HIV/hepatitis C History of lung and breast cancer Plan Admit to medicine high-dose IV steroids, nebulized treatments, IV antibiotic follows up at [facility], cont OP mgt Cardiac enzymes, continue BiPAP Continue appropriate outpatient medications DVT prophylaxis Disposition: DC- TO HOME OR SELFCARE Time spent for discharge: 33 mins Core Measure Documentation - Palliative Care Palliative Care/ Comfort Measures: Not Applicable - Core Measures Any of the following diagnoses?: none Exam - Constitutional Vitals: Temp Pulse Resp BP Pulse Ox 99.1 F 87 22 150/99 97 07/01/19 08:00 07/01/19 09:16 07/01/19 10:28 07/01/19 08:00 07/01/19 09:15 General appearance: Present: no acute distress, well-nourished - EENT Eyes: Present: PERRL ENT: hearing intact, clear oral mucosa - Neck Neck: Present: supple, normal ROM - Respiratory Respiratory effort: normal Respiratory: bilateral: CTA - Cardiovascular Heart Sounds: Present: S1 & S2. Absent: rub, click - Extremities Extremities: pulses symmetrical, No edema Peripheral Pulses: within normal limits - Abdominal General gastrointestinal: Present: soft, non-tender, non-distended, normal bowel sounds Female genitourinary: Present: normal - Integumentary Integumentary: Present: clear, warm, dry - Musculoskeletal Musculoskeletal: gait normal, strength equal bilaterally - Psychiatric Psychiatric: appropriate mood/affect, intact judgment & insight - Neurologic Neurologic: CNII-XII intact, moves all extremities Plan Follow up with: NORMA WILLIAM MD [Primary Care Provider] - 3-5 Days Prescriptions: Albuterol Sulfate [Albuterol 0.63% NEBS] 0.63 mg IH Q4HR PRN 30 Days #120 ml PRN Reason: Wheezing Butalb/Acetamin/Caff 50-325-40 [Fioricet 50-325-40] 2 tab PO Q4H PRN #30 tablet PRN Reason: Headache Prednisone [predniSONE 5 mg (6-Day Pack, 21 Tabs)] 5 mg PO .TAPER #1 tab.ds.pk Tiotropium [place] [Spiriva Respimat] 1 puff IH DAILY #1 mist.inhal Budesonide/Formoterol Fumarate [Symbicort 160-4.5 Mcg Inhaler] 10.2 gm IH BID #1 hfa.aer.ad
--- NOTE | 2019-07-01 12:46 | Progress Note ---
Assessment and Plan Acute chronic obstructive pulmonary disease exacerbation. Possible occult pneumonia. Abnormal CT scan that is chronic. HIV positive. Myqfs-[id number] hypoxemic respiratory failure. History of lung cancer. History of breast cancer - continue supplemental oxygen and wean to keep O2 sat's > 90% - continue bronchodilators (CHASTITY & LABA) with pulmonary hygiene per RT - complete empiric AB's therapy - continue inhaled and systemic steroids - continue GI & VTE prophylaxis - outpatient pulmonary clinic f/up re: COPD & lung Cancer - tobacco Abstinence counseled - continue other care per attending / other consultants ... re-evaluate in am & prn Subjective Date of service: 07/01/19 Principal diagnosis: AE-COPD; Possible occult pneumonia; HIV positive; hypoxemic resp failure Interval history: Patient is seen today for: Acute COPD exacerbation; Possible occult pneumonia; Abnormal CT scan that is chronic; HIV positive; [id number]-ku-[id number] hypoxemic respiratory failure; History of lung cancer; History of breast cancer. Seen and examined at bedside; 24hour events reviewed; nursing and respiratory care staff consulted; no adverse overnight events reported to me; resting peacefully in bed; feels better; no hemoptysis; denies acute chest pains or palpitations Objective Vital Signs - 12hr 07/01/19 07/01/19 07/01/19 03:57 08:00 08:24 Temperature 98.1 F 99.1 F Pulse Rate 77 91 H Pulse Rate [ Anterior Bilateral Throughout] Respiratory 18 18 Rate Respiratory Rate [Anterior Bilateral Throughout] Blood Pressure 136/88 150/99 O2 Sat by Pulse 100 Oximetry 07/01/19 07/01/19 07/01/19 09:12 09:15 09:16 Temperature Pulse Rate Pulse Rate [ 87 Anterior Bilateral Throughout] Respiratory Rate Respiratory 20 Rate [Anterior Bilateral Throughout] Blood Pressure O2 Sat by Pulse 99 97 Oximetry 07/01/19 07/01/19 10:00 10:28 Temperature Pulse Rate Pulse Rate [ Anterior Bilateral Throughout] Respiratory 24 22 Rate Respiratory Rate [Anterior Bilateral Throughout] Blood Pressure O2 Sat by Pulse 97 Oximetry Constitutional: no acute distress, alert, other (elderly and chrionically ill looking CF, normocephalic and atraumatic with mildly increased resp effort at rest) Eyes: non-icteric ENT: oropharynx moist, other (mallampati 2) Neck: supple, no lymphadenopathy, no JVD Effort: mildly labored Ascultation: Bilateral: clear, rales (inspiratory in bases) Percussion: Bilateral: not dull Cardiovascular: regular rate and rhythm, other (No R/M) Gastrointestinal: normoactive bowel sounds, soft, non-tender, non-distended Integumentary: rash Extremities: no cyanosis, no edema, pulses normal, no ischemia or petechiae Neurologic: normal mental status, non-focal exam, pupils equal and round, motor strength normal and Psychiatric: mood appropriate, affect normal CBC and BMP: 06/29/19 05:41 06/30/19 13:25 ABG, PT/INR, D-dimer: PT/INR, D-dimer PT 12.0 Sec. (12.2-14.9) L 06/28/19 21:09 INR 0.91 (0.87-1.13) 06/28/19 21:09 303.93 ng/mlDDU (0-234) H 06/28/19 21:09 Abnormal lab findings: Abnormal Labs 06/28/19 06/28/19 06/28/19 21:09 21:09 21:09 WBC Ogle % (Auto) 10.4 H Lymph # Ogle # 1.0 H Seg Neutrophils % 73.4 H PT 12.0 L D-Dimer 303.93 H Potassium Carbon Dioxide 33 H BUN 5 L Creatinine 0.3 L Glucose 127 H Lactic Acid Magnesium 3.70 H CK-MB (CK-2) 06/28/19 06/29/19 06/29/19 22:46 05:41 05:41 WBC 3.5 L Ogle % (Auto) Lymph # 0.5 L Ogle # Seg Neutrophils % 84.2 H PT D-Dimer Potassium 5.2 H D Carbon Dioxide BUN 5 L Creatinine 0.4 L Glucose 135 H Lactic Acid 0.50 L Magnesium CK-MB (CK-2) 06/29/19 10:36 WBC Ogle % (Auto) Lymph # Ogle # Seg Neutrophils % PT D-Dimer Potassium Carbon Dioxide BUN Creatinine Glucose Lactic Acid Magnesium CK-MB (CK-2) 4.7 H Chest x-ray: image reviewed Allied health notes reviewed: nursing
[2019-07-01] MEDS ORDERED: BROVANA NEBU IH SCH (20:00)
[2019-07-01] MEDS ORDERED: PULMICORT IH SCH (20:00)
== END 2019-07-01 15:22 | disposition home or self-care (01) | DRG 189 ==
LOC: ED 20:56 → 4A 06-29 04:16
PROVIDERS: ADMIT Internal Medicine; ATTEND Internal Medicine
PROC: 5A09357 Assistance with Respiratory Ventilation, Less than 24 Consecutive Hours, Continuous Positive Airway Pressure (ICD-10-PCS; 2019-06-28)
PROC: 3E0234Z Introduction of Serum, Toxoid and Vaccine into Muscle, Percutaneous Approach (ICD-10-PCS; principal; 2019-06-29)
PROC: 5A09357 Assistance with Respiratory Ventilation, Less than 24 Consecutive Hours, Continuous Positive Airway Pressure (ICD-10-PCS; 2019-06-29)
DX: J96.21 Acute and chronic respiratory failure with hypoxia (principal); J44.1 Chronic obstructive pulmonary disease with (acute) exacerbation; J20.9 Acute bronchitis, unspecified; J45.901 Unspecified asthma with (acute) exacerbation; B19.20 Unspecified viral hepatitis C without hepatic coma; I10 Essential (primary) hypertension; R65.10 Systemic inflammatory response syndrome (SIRS) of non-infectious origin without acute organ dysfunction; Z21 Asymptomatic human immunodeficiency virus [HIV] infection status; Z85.3 Personal history of malignant neoplasm of breast; Z85.118 Personal history of other malignant neoplasm of bronchus and lung; Z23 Encounter for immunization
CPT/HCPCS: 36415; 71045; 71275; 80048; 82140; 82550; 82553; 83615; 83735; 84132; 84484; 85025; 85379; 85610; 87040; 87070; 87116; 87205; 90732; 93005; 93010; 94640; 94644; 94760; 99406; G0378; J0456; J1650; J1956; J2930; J7030; J7040; J7050

== ENCOUNTER 2019-07-07 07:24 | Inpatient (IN) | payer MEDICAID ==
[2019-07-07] MEDS ORDERED: PROVENTIL IH ONE (08:02)
[2019-07-07] MEDS ORDERED: ATROVENT IH ONE (08:02)
[2019-07-07] MEDS ORDERED: MAGNESIUM SULFATE 2GM/50ML 2 GM/50 ML BAG IV ONE (08:02)
[2019-07-07] MEDS ORDERED: SOLU-Medrol IV ONE (08:02)
[2019-07-07] MEDS ORDERED: DUONEB *Not for PRN Use IH ONE ×3 (08:03→20:46)
--- NOTE | 2019-07-07 08:14 | Emergency Department Report ---
HPI - General Chief Complaint: Dyspnea/Respdistress Time Seen by Provider: 07/07/19 07:56 - HPI HPI: Room 1 The patient is a 64-year-old female presents with chief complaint of shortness of breath. Patient has a history of COPD and states she's been short of breath for the past 2 days. The patient is to call occasionally productive of yellow sputum. Patient missed a slight rhinorrhea. Patient denies fever or pain of any type. Location: [See above] Duration: [See above] Quality: [See above] Severity: [See above] Modifying factors: [see above] Context: [see above] Mode of transportation: [not driving] ED Past Medical Hx - Past Medical History Hx Hypertension: Yes Hx Liver Disease: Yes (hepatitis C) Hx Asthma: Yes Hx COPD: Yes (home O2 3 L) Hx HIV: Yes (states normal CD4 summer 2018) Additional medical history: Breast cancer,lung cancer, Hep C - Surgical History Hx Breast Surgery: Yes (right breast) Additional Surgical History: mastectomy right breast - Family History Family history: no significant - Social History Smoking Status: Current Every Day Smoker Substance Use Type: None - Medications Home Medications: Home Medications Medication Instructions Recorded Confirmed Last Taken Type Dolutegravir [Tivicay] 50 mg PO DAILY 03/14/19 03/14/19 Unknown History Emtricitabine/Tenofov Alafenam 1 each PO DAILY 03/14/19 03/14/19 Unknown History [Descovy 200-25 mg Tablet] Famotidine [Pepcid] 20 mg PO BID #30 tablet 03/17/19 Unknown Rx Promethazine [Phenergan] 25 mg PO Q6HR PRN #20 tab 03/17/19 Unknown Rx ALBUTEROL Inhaler (OR & NICU) 2 puff IH QID PRN #1 inhalation 07/01/19 Unknown Rx [ProAir HFA Inhaler] Albuterol Sulfate [Albuterol 0.63% 0.63 mg IH Q4HR PRN 30 Days #120 ml 07/01/19 Unknown Rx NEBS] Budesonide/Formoterol Fumarate 10.2 gm IH BID #1 hfa.aer.ad 07/01/19 Unknown Rx [Symbicort 160-4.5 Mcg Inhaler] Butalb/Acetamin/Caff 50-325-40 2 tab PO Q4H PRN #30 tablet 07/01/19 Unknown Rx [Fioricet 50-325-40] Prednisone [predniSONE 5 mg (6-Day 5 mg PO .TAPER #1 tab.ds.pk 07/01/19 Unknown Rx Pack, 21 Tabs)] Tiotropium [place] [Spiriva 1 puff IH DAILY #1 mist.inhal 07/01/19 Unknown Rx Respimat] ED Review of Systems ROS: Stated complaint: MEAGAN Other details as noted in HPI Constitutional: denies: fever Eyes: denies: eye pain ENT: denies: throat pain Respiratory: cough, shortness of breath Cardiovascular: denies: chest pain Endocrine: no symptoms reported Gastrointestinal: denies: abdominal pain Genitourinary: denies: dysuria Musculoskeletal: denies: back pain Neurological: denies: headache Physical Exam - Physical Exam Vital Signs: Vital Signs 07/07/19 07:39 Pulse Rate 111 H Respiratory 22 Rate Blood Pressure 149/63 O2 Sat by Pulse 98 Oximetry Physical Exam: GENERAL: The patient is well-developed well-nourished female lying on stretcher appearing to have labored respirations. [] HEENT: Normocephalic. Atraumatic. Extraocular motions are intact. Patient has moist mucous membranes. NECK: Trachea midline CHEST/LUNGS: Diffuse wheezing. Accessory muscle use HEART/CARDIOVASCULAR: Regular. There is tachycardia. There is no gallop rub or murmur. ABDOMEN: Abdomen is soft, nontender. Patient has normal bowel sounds. There is no abdominal distention. SKIN: There is no rash. There is no edema. There is no diaphoresis. NEURO: The patient is awake, alert, and oriented. The patient is cooperative. The patient has normal speech MUSCULOSKELETAL: There is no evidence of acute injury. ED Course Vital Signs 07/07/19 07:39 Pulse Rate 111 H Respiratory 22 Rate Blood Pressure 149/63 O2 Sat by Pulse 98 Oximetry - EJ/Peripheral Line Neck L Time Out Performed: Yes Indications: nurses unable to establis Skin Cleansed in Sterile Fashion: Yes Size: 20 Dressing Placed: Tegaderm Patient Tolerated Procedure: well, no complications ED Medical Decision Making - Lab Data Result diagrams: 07/07/19 08:08 07/07/19 08:08 Laboratory Tests 07/07/19 07/07/19 08:08 08:08 WBC 10.3 RBC 4.35 Hgb 13.5 Hct 41.7 MCV 96 MCH 31 MCHC 32 RDW 14.6 Plt Count 301 Lymph % (Auto) 19.2 [place] % (Auto) 9.9 H Eos % (Auto) 1.2 Baso % (Auto) 0.2 Lymph # 2.0 [place] # 1.0 H Eos # 0.1 Baso # 0.0 Seg Neutrophils % 69.5 Seg Neutrophils # 7.2 Sodium 140 Potassium 4.7 Chloride 99.4 Carbon Dioxide 36 H Anion Gap 9 BUN 4 L Creatinine 0.4 L Estimated GFR > 60 BUN/Creatinine Ratio 10 Glucose 97 Calcium 8.8 Troponin T < 0.010 NT-Pro-B Natriuret Pep 111.5 - EKG Data -: EKG Interpreted by Me EKG shows normal: sinus rhythm Rate: tachycardia (102 bpm) - EKG Data When compared to previous EKG there are: previous EKG unavailable Interpretation: other (no ischemic changes seen) - Radiology Data Radiology results: image reviewed (chest x-ray) interpreted by me: Chest x-ray-no focal infiltrates, no pneumothorax [facility] [address] [place] [address] XRay Report Signed Patient: MARY TOMLINSON MR#: [id number] : 1955 Acct:[id number] Age/Sex: 64 / F ADM Date: 07/07/19 Loc: ED Attending Dr: Ordering Physician: YRN ROBLEDO MD Date of Service: 07/07/19 Procedure(s): XR chest 1V ap Accession Number(s): [id number] cc: YRN ROBLEDO MD Fluoro Time In Minutes: CHEST 1 VIEW INDICATION: Dyspnea for 2 days, history of COPD.. COMPARISON: 06/28/2019 FINDINGS: Support devices: None. Heart: Within normal limits. Lungs/Pleura: Moderate to severe hyperinflation is stable. Subtle scarring in the lateral right upper lobe is again noted unchanged since the previous exam. No evidence for pneumonia, pleural effusion or pneumothorax. The bony structures are grossly intact. Additional findings: None. IMPRESSION: COPD. No acute process noted. Signer Name: Georgi Watts Jr, MD Signed: 07/07/2019 8:30 AM Workstation Name: [id number] Transcribed By: TTR Dictated By: GEORGI WATTS JR, MD Electronically Authenticated By: GEORGI WATTS JR, MD Signed Date/Time: 07/07/19829 DD/ 7 TD/TT: - Differential Diagnosis COPD exacerbation, pneumonia, pneumothorax Critical care attestation.: If time is entered above; I have spent that time in minutes in the direct care of this critically ill patient, excluding procedure time. ED Disposition Clinical Impression: Shortness of breath, COPD exacerbation Disposition: OP ADMIT IP TO THIS HOSP Is pt being admited?: Yes Does the pt Need Aspirin: Yes Condition: Fair Instructions: Chronic Obstructive Pulmonary Disease (ED) Referrals: PRIMARY CARE, [Referring] - 3-5 Days Time of Disposition: 09:09 (hospitalist paged)
[2019-07-07 08:18] LABS: Basophils % (Auto) 0.2 % (0.0-1.8); Eosinophils # (Auto) 0.1 K/mm3 (0.0-0.4); Eosinophils % (Auto) 1.2 % (0.0-4.3); Hematocrit 41.7 % (30.3-42.9); Hemoglobin 13.5 gm/dl (10.1-14.3); Lymphocytes % (Auto) 19.2 % (13.4-35.0); Mean Corpuscular HGB Conc 32 % (30-34); Mean Corpuscular Volume 96 fl (79-97); Monocytes % (Auto) 9.9 % (0.0-7.3); Platelet Count 301 K/mm3 (140-440); Red Blood Count 4.35 M/mm3 (3.65-5.03); Red Cell Distribution Width 14.6 % (13.2-15.2)
[2019-07-07 08:31] LABS: BUN/Creatinine Ratio 10; Blood Urea Nitrogen 4 mg/dL (7-17); Calcium 8.8 mg/dL (8.4-10.2); Hemolysis Index 6
--- NOTE | 2019-07-07 08:34 | XRay Report ---
CHEST 1 VIEW INDICATION: Dyspnea for 2 days, history of COPD.. COMPARISON: 06/28/2019 FINDINGS: Support devices: None. Heart: Within normal limits. Lungs/Pleura: Moderate to severe hyperinflation is stable. Subtle scarring in the lateral right upper lobe is again noted unchanged since the previous exam. No evidence for pneumonia, pleural effusion o r pneumothorax. The bony structures are grossly intact. Additional findings: None. IMPRESSION: COPD. No acute process noted. Signer Name: Georgi Thomas Jr, MD Signed: 07/07/2019 8:30 AM Workstation Name: [id number]
--- NOTE | 2019-07-07 09:33 | History and Physical Report ---
History of Present Illness Date of examination: 07/07/19 Date of admission: 07/07/19 Chief complaint: RESPIRATORY FAILURE History of present illness: Patient is a 64-year-old woman with a history of COPD, asthma, HIV, hepatitis C, lung and breast cancer who presents to the ED with complaints of shortness of breath and a persistent sensation of not being able to breath. She also complained of chest discomfort rated a 5/10 in intensity associated with cough. The pain is non radiating and with no exertion association. The patient who reports a baseline dyspnea states that it began worsening a few days ago. She was unable to provide more information as she is currently on a BIPAP and kept insisting that she was unable to breath. Other information obtained from the chart. The patient reportedly stated that she has occasional productive yellow sputum and had slight rhinorrhea. she denied any fever or sick contact except that she was recently discharged from the hospital. she unfortunately has not followed up with the pulmonogist as recommended during the last admission Review of systems Constitutional: no weight loss Ears, eyes, nose, mouth and throat: no nasal congestion, no nasal discharge, no sinus pressure, no vision change, no red eye. Neck: No neck pain or rigidity. Cardiovascular: chest pain, no palpitations Respiratory: + cough, shortness of breath Gastrointestinal: no abdominal pain hematochezia Genitourinary : no frequency , no hematuria Musculoskeletal: no joint swelling or muscle ache Integumentary: no rash, no pruritis Neurological: no parathesias, no numbness, no focal weakness Endocrine: no cold or heat intolerance, no polyuria or polydipsia Hematologic/Lymphatic: no easy bruising, no easy bleeding, no gland swelling Allergic/Immunologic: no urticaria, no angioedema. PAST MEDICAL HISTORY:COPD, asthma, HIV, unknown CD4 count, hepatitis C, lung and breast cancer PAST SURGICAL HISTORY: Right mastectomy, section 3 FAMILY HISTORY: Hypertension SOCIAL HISTORY: +tobacco, no alcohol, drug Past History Past Medical History: COPD, HIV/AIDS, hypertension Past Surgical History: (x3), mastectomy Social history: lives with family Family history: hypertension Medications and Allergies Allergies Allergy/AdvReac Type Severity Reaction Status Date / Time Penicillins Allergy Headache Verified 01/02/18 22:28 Home Medications Medication Instructions Recorded Confirmed Last Taken Type Dolutegravir [Tivicay] 50 mg PO DAILY 03/14/19 07/07/19 07/06/19 History Emtricitabine/Tenofov Alafenam 1 each PO DAILY 03/14/19 07/07/19 07/06/19 History [Descovy 200-25 mg Tablet] Famotidine [Pepcid] 20 mg PO BID #30 tablet 03/17/19 07/07/19 07/06/19 Rx Promethazine [Phenergan] 25 mg PO Q6HR PRN #20 tab 03/17/19 07/07/19 07/06/19 Rx ALBUTEROL Inhaler (OR & NICU) 2 puff IH QID PRN #1 inhalation 07/01/19 07/07/19 07/06/19 Rx [ProAir HFA Inhaler] Emtricitabine/Tenofov Alafenam 1 mg PO QDAY 07/07/19 07/07/19 07/06/19 History [Descovy 200-25 mg Tablet] Exam - Physical Exam Narrative exam: General Apperance: Moderate respiratory distress on BIPAP HEENT: Normocephalic, atraumatic. chechectic, marked tempral wasting, Pupils equally round and reactive to light, extraocular movement intact, and no sclericterus or JVD or thyromegaly or nodule. Neck supple, no carotid bruit, mucous membranes moist, no exudate or erythema Heart: S1-S2, regular is rhythm Lungs:Decrease air entry, wheezing bilaterally, with increased work of breath Abdomen: Positive bowel sounds, soft, nontender, nondistended, no organomegaly Extremities: No edema cyanosis clubbing Skin: no rash, nodule, warm and dry Neuro:CN 2 -12 intact, motor/sensory intact, speech delayed due to respiratory distress - Constitutional Vitals: Temp Pulse Resp BP Pulse Ox 109 H 20 125/88 98 07/07/19 09:15 07/07/19 09:15 07/07/19 09:15 07/07/19 09:07 Results - Labs CBC & Chem 7: 07/08/19 04:05 07/08/19 04:05 Labs: Laboratory Last Values WBC 10.3 K/mm3 (4.5-11.0) 07/07/19 08:08 RBC 4.35 M/mm3 (3.65-5.03) 07/07/19 08:08 Hgb 13.5 gm/dl (10.1-14.3) 07/07/19 08:08 Hct 41.7 % (30.3-42.9) 07/07/19 08:08 MCV 96 fl (79-97) 07/07/19 08:08 MCH 31 pg (28-32) 07/07/19 08:08 MCHC 32 % (30-34) 07/07/19 08:08 RDW 14.6 % (13.2-15.2) 07/07/19 08:08 Plt Count 301 K/mm3 (140-440) 07/07/19 08:08 Lymph % (Auto) 19.2 % (13.4-35.0) 07/07/19 08:08 [place] % (Auto) 9.9 % (0.0-7.3) H 07/07/19 08:08 Eos % (Auto) 1.2 % (0.0-4.3) 07/07/19 08:08 Baso % (Auto) 0.2 % (0.0-1.8) 07/07/19 08:08 Lymph # 2.0 K/mm3 (1.2-5.4) 07/07/19 08:08 [place] # 1.0 K/mm3 (0.0-0.8) H 07/07/19 08:08 Eos # 0.1 K/mm3 (0.0-0.4) 07/07/19 08:08 Baso # 0.0 K/mm3 (0.0-0.1) 07/07/19 08:08 Seg Neutrophils % 69.5 % (40.0-70.0) 07/07/19 08:08 Seg Neutrophils # 7.2 K/mm3 (1.8-7.7) 07/07/19 08:08 Sodium 140 mmol/L (137-145) 07/07/19 08:08 Potassium 4.7 mmol/L (3.6-5.0) 07/07/19 08:08 Chloride 99.4 mmol/L (98-107) 07/07/19 08:08 Carbon Dioxide 36 mmol/L (22-30) H 07/07/19 08:08 9 mmol/L 07/07/19 08:08 BUN 4 mg/dL (7-17) L 07/07/19 08:08 0.4 mg/dL (0.7-1.2) L 07/07/19 08:08 Estimated GFR > 60 ml/min 07/07/19 08:08 10 % 07/07/19 08:08 Glucose 97 mg/dL (65-100) 07/07/19 08:08 Calcium 8.8 mg/dL (8.4-10.2) 07/07/19 08:08 < 0.010 ng/mL (0.00-0.029) 07/07/19 08:08 NT-Pro-B Natriuret Pep 111.5 pg/mL (0-900) 07/07/19 08:08 Assessment and Plan Assessment and plan: Patient is a 64-year-old woman with a history of COPD, asthma, HIV, hepatitis C, lung and breast cancer who presents to the ED with complaints of shortness of breath and a persistent sensation of not being able to breath. She also complained of chest discomfort rated a 5/10 in intensity associated with cough. The pain is non radiating and with no exertion association. The patient who reports a baseline dyspnea states that it began worsening a few days ago. She was unable to provide more information as she is currently on a BIPAP and kept insisting that she was unable to breath. Other information obtained from the chart. The patient reportedly stated that she has occasional productive yellow sputum and had slight rhinorrhea. she denied any fever or sick contact except that she was recently discharged from the hospital. she unfortunately has not followed up with the pulmonogist as recommended during the last admission CXR:Negative for acute pathology Assessment Acute Respiratory Failure COPD/asthma exacerbation with acute bronchitis HIV/hepatitis C Marked cachexia possible malnourished History of lung and breast cancer Plan Admit to medicine Start high-dose IV steroids, nebulized treatments, IV antibiotic Cardiac enzymes, continue BiPAP Patternmaker Pressure Cast consult Consult pulmonary stress test prior to discharge Continue appropriate outpatient medications DVT prophylaxis TRANSFER TO [facility] DUE TO PERSISTENT HYPOXIA OFF BIPAP on readmission. it is noted that the patient desats to low 80s off the BIPAP Plan discussed with the patient in detail Advance Directives: Yes Plan of care discussed with patient/family: Yes
--- NOTE | 2019-07-07 10:46 | Consultation ---
History of Present Illness Consult date: 07/07/19 Requesting physician: TANIA MCCOY Reason for consult: COPD (AE-COPD) History of present illness: History of present illness: Patient is a 64-year-old woman with a history of COPD, asthma, HIV, hepatitis C, lung and breast cancer who presents to the ED with complaints of shortness of breath and a persistent sensation of not being able to breath. She also complained of chest discomfort rated a 5/10 in intensity associated with cough. The pain is non radiating and with no exertion association. The patient who reports a baseline dyspnea states that it began worsening a few days ago. She was unable to provide more information as she is currently on a BIPAP and kept insisting that she was unable to breath. Other information obtained from the chart. The patient reportedly stated that she has occasional productive yellow sputum and had slight rhinorrhea. she denied any fever or sick contact except that she was recently discharged from the hospital. she unfortunately has not followed up with the pulmonogist. I have been consulted for acute hypoxic respiratory failure on NIPPV. Thank you for the consult. Patient was seen and examined. Vitals, labs, medications, chart and imaging reviewed. She has some mild respiratory distress and is on NIPPV. she wants some water. her daughter is at the bedside. patient endorses on going tobacco use, though she does not smoke as much Review of systems Constitutional: no weight loss Ears, eyes, nose, mouth and throat: no nasal congestion, no nasal discharge, no sinus pressure, no vision change, no red eye. Neck: No neck pain or rigidity. Cardiovascular: chest pain, no palpitations Respiratory: + cough, shortness of breath Gastrointestinal: no abdominal pain hematochezia Genitourinary : no frequency , no hematuria Musculoskeletal: no joint swelling or muscle ache Integumentary: no rash, no pruritis Neurological: no parathesias, no numbness, no focal weakness Endocrine: no cold or heat intolerance, no polyuria or polydipsia Hematologic/Lymphatic: no easy bruising, no easy bleeding, no gland swelling Allergic/Immunologic: no urticaria, no angioedema. PAST MEDICAL HISTORY:COPD, asthma, HIV, unknown CD4 count, hepatitis C, lung and breast cancer PAST SURGICAL HISTORY: Right mastectomy, section 3 FAMILY HISTORY: Hypertension SOCIAL HISTORY: +tobacco, no alcohol, drug Medications and Allergies Allergies Allergy/AdvReac Type Severity Reaction Status Date / Time Penicillins Allergy Headache Verified 01/02/18 22:28 Home Medications Medication Instructions Recorded Confirmed Last Taken Type Dolutegravir [Tivicay] 50 mg PO DAILY 03/14/19 07/07/19 07/06/19 History Emtricitabine/Tenofov Alafenam 1 each PO DAILY 03/14/19 07/07/19 07/06/19 History [Descovy 200-25 mg Tablet] Famotidine [Pepcid] 20 mg PO BID #30 tablet 03/17/19 07/07/19 07/06/19 Rx Promethazine [Phenergan] 25 mg PO Q6HR PRN #20 tab 03/17/19 07/07/19 07/06/19 Rx ALBUTEROL Inhaler (OR & NICU) 2 puff IH QID PRN #1 inhalation 07/01/19 07/07/19 07/06/19 Rx [ProAir HFA Inhaler] Emtricitabine/Tenofov Alafenam 1 mg PO QDAY 07/07/19 07/07/19 07/06/19 History [Descovy 200-25 mg Tablet] Active Meds: Active Medications Acetaminophen (Tylenol) 650 mg PO Q4H PRN PRN Reason: Pain MILD(1-3)/Fever >100.5/DE LEON Albuterol (Proventil) 2.5 mg IH Q4HRT PRN PRN Reason: Shortness Of Breath Albuterol/Ipratropium (Duoneb *Not For Prn Use*) 1 ampul IH Q6HRT [facility] Arformoterol Tartrate (Brovana Nebu) 15 mcg IH Q12HRT [facility] Budesonide (Pulmicort) 0.5 mg IH Q12HRT [facility] Famotidine (Pepcid) 10 mg PO BID [facility] Azithromycin 500 mg/ Sodium (Chloride) 250 mls @ 250 mls/hr IV Q24HR ELLIE; Protocol Methylprednisolone Sodium Succinate (Solu-Medrol) 80 mg IV Q8HR ELLIE Naloxone HCl (Narcan 0.4 Mg/1 Ml) 0.1 mg IV Q2MIN PRN PRN Reason: Res Rate </= 8 or 02 SAT < 92% Ondansetron HCl (Zofran) 4 mg IV Q8H PRN PRN Reason: Nausea And Vomiting Sodium Chloride (Sodium Chloride Flush Syringe 10 Ml) 10 ml IV BID ELLIE Sodium Chloride (Sodium Chloride Flush Syringe 10 Ml) 10 ml IV PRN PRN PRN Reason: LINE FLUSH Physical Examination Vital signs: Vital Signs Pulse Resp BP Pulse Ox 111 H 22 149/63 98 07/07/19 07:39 07/07/19 07:39 07/07/19 07:39 07/07/19 07:39 General Apperance: Moderate respiratory distress on BIPAP HEENT: Normocephalic, atraumatic. chachetic, marked temporal wasting, Pupils equally round and reactive to light, extraocular movement intact, and no sclericterus or JVD or thyromegaly or nodule. Neck supple, no carotid bruit, mucous membranes moist, no exudate or erythema Heart: S1-S2, regular is rhythm Lungs:Decrease air entry, wheezing bilaterally, with increased work of breath Abdomen: Positive bowel sounds, soft, non tender, non distended, no organomegaly Extremities: No edema cyanosis clubbing Skin: no rash, nodule, warm and dry Neuro: CN 2 -12 intact, motor/sensory intact, conversational dyspnea Results - Laboratory Findings CBC and BMP: 07/08/19 04:05 07/08/19 04:05 Abnormal lab findings: Abnormal Labs 07/07/19 07/07/19 08:08 08:08 [place] % (Auto) 9.9 H [place] # 1.0 H Carbon Dioxide 36 H BUN 4 L Creatinine 0.4 L - Diagnostic Findings Chest x-ray: image reviewed (Hyperinflated lung fiels, consistent with COPD) Assessment and Plan Acute Respiratory Failure on NIPPV COPD/asthma exacerbation with acute bronchitis HIV/hepatitis C Severe protein calorie malnutitrition History of lung and breast cancer
[2019-07-07] MEDS: PEPCID PO SCH ×2 (10:59→22:39)
[2019-07-07] MEDS: SODIUM CHLORIDE FLUSH SYRINGE 10 ML IV SCH ×2 (10:59→23:00)
[2019-07-07] MEDS ORDERED: SODIUM CHLORIDE FLUSH SYRINGE 10 ML IV PRN (11:00)
[2019-07-07] MEDS ORDERED: TYLENOL PO PRN (11:00)
[2019-07-07] MEDS ORDERED: NARCAN 0.4 MG/1 ML IV PRN (11:00)
[2019-07-07] MEDS: HABITROL TD SCH (11:57)
[2019-07-07] MEDS: ZITHROMAX 500 MG in NACL 0.9% 250ML 250 ML IV SCH (11:57)
[2019-07-07] MEDS ORDERED: PROVENTIL IH PRN (12:00)
[2019-07-07] MEDS ORDERED: LOVENOX SUB-Q ONE (12:31)
[2019-07-07] MEDS ORDERED: ZOFRAN ONE (12:34)
[2019-07-07] MEDS: ZOFRAN IV PRN (12:47)
[2019-07-07] MEDS: LOVENOX SUB-Q SCH (12:47)
[2019-07-07] MEDS ORDERED: SOLU-Medrol ONE (14:27)
[2019-07-07] MEDS: DUONEB *Not for PRN Use IH SCH ×2 (14:50→20:39)
[2019-07-07] MEDS: SOLU-Medrol IV SCH ×2 (14:57→22:39)
[2019-07-07] MEDS: PULMICORT IH SCH (20:39)
[2019-07-07] MEDS: BROVANA NEBU IH SCH (20:44)
[2019-07-07] MEDS ORDERED: BROVANA NEBU IH ONE (20:46)
[2019-07-07] MEDS ORDERED: PULMICORT IH ONE (20:46)
[2019-07-08] MEDS: DUONEB *Not for PRN Use IH SCH ×3 (03:45→17:33)
[2019-07-08 04:39] LABS: Basophils % (Auto) 0.4 % (0.0-1.8); Hematocrit 38.1 % (30.3-42.9); Hemoglobin 12.5 gm/dl (10.1-14.3); Lymphocytes # (Auto) 0.6 K/mm3 (1.2-5.4); Lymphocytes % (Auto) 13.3 % (13.4-35.0); Mean Corpuscular HGB Conc 33 % (30-34); Mean Corpuscular Volume 95 fl (79-97); Monocytes # (Auto) 0.1 K/mm3 (0.0-0.8); Monocytes % (Auto) 2.1 % (0.0-7.3); Red Blood Count 4.02 M/mm3 (3.65-5.03); Red Cell Distribution Width 14.4 % (13.2-15.2)
[2019-07-08 04:55] LABS: BUN/Creatinine Ratio 30; Blood Urea Nitrogen 9 mg/dL (7-17); Calcium 8.5 mg/dL (8.4-10.2); Hemolysis Index 36
[2019-07-08 05:17] LABS: Platelet Count 223 K/mm3 (140-440)
[2019-07-08] MEDS: SOLU-Medrol IV SCH ×2 (05:19→13:05)
[2019-07-08 07:37] LABS: Creatine Kinase MB 2.4 ng/mL (0.0-4.0)
[2019-07-08] MEDS: HABITROL TD SCH (09:22)
[2019-07-08] MEDS: PEPCID PO SCH (09:22)
[2019-07-08] MEDS: LOVENOX SUB-Q SCH (09:22)
[2019-07-08] MEDS: SODIUM CHLORIDE FLUSH SYRINGE 10 ML IV SCH (09:23)
[2019-07-08] MEDS: BROVANA NEBU IH SCH ×2 (10:14→20:08)
[2019-07-08] MEDS: PULMICORT IH SCH ×2 (10:14→20:08)
[2019-07-08] MEDS: ZITHROMAX 500 MG in NACL 0.9% 250ML 250 ML IV SCH (10:59)
[2019-07-08] MEDS ORDERED: TENOFOVIR ALAFENAMIDE PO SCH (13:00)
[2019-07-08] MEDS ORDERED: EMTRICITABINE PO SCH (13:00)
[2019-07-08] MEDS ORDERED: NON-FORMULARY (Emtricitabine/Tenofov Alafenam [Descovy 200-25 Mg Tablet] 1 EACH) PO SCH (13:00)
[2019-07-08] MEDS: PERCOCET 5/325 PO PRN ×2 (13:05→19:08)
[2019-07-08 13:12] LABS: Creatine Kinase MB 2.1 ng/mL (0.0-4.0)
[2019-07-08] MEDS ORDERED: KIONEX PO ONE (13:30)
--- NOTE | 2019-07-08 20:58 | Progress Note ---
Assessment and Plan Assessment and plan: Patient is a 64-year-old woman with a history of COPD, asthma, HIV, hepatitis C, lung and breast cancer who presents to the ED with complaints of shortness of breath and a persistent sensation of not being able to breath. She also complained of chest discomfort rated a 5/10 in intensity associated with cough. The pain is non radiating and with no exertion association. The patient who reports a baseline dyspnea states that it began worsening a few days ago. She was unable to provide more information as she is currently on a BIPAP and kept insisting that she was unable to breath. Other information obtained from the chart. The patient reportedly stated that she has occasional productive yellow sputum and had slight rhinorrhea. she denied any fever or sick contact except that she was recently discharged from the hospital. she unfortunately has not followed up with the pulmonogist as recommended during the last admission CXR:Negative for acute pathology Assessment Acute Respiratory Failure COPD/asthma exacerbation with acute bronchitis HIV/hepatitis C Marked cachexia possible malnourished Hyper kalemia new smi History of lung and breast cancer Plan Continue supportive care Wean down steroids, continue nebulized treatments, IV antibiotic Cardiac enzymes, continue BiPAP as needed patient unfortunately did not follow with pulmonlogist outpatient. she understands the importance and will comply Pulmonary consulted stress test prior to discharge Continue appropriate outpatient medications DVT prophylaxis Plan discussed with the patient in detail History Interval history: Patient seen and examined, resting comfortable without any need of further Bipap Hospitalist Physical - Physical exam Narrative exam: General Apperance: mild respiratory distress off BIPAP now on oxygen nc HEENT: Normocephalic, atraumatic. chechectic, marked tempral wasting, Pupils equally round and reactive to light, extraocular movement intact, and no sclericterus or JVD or thyromegaly or nodule. Neck supple, no carotid bruit, mucous membranes moist, no exudate or erythema Heart: S1-S2, regular is rhythm Lungs:Decrease air entry, wheezing bilaterally, with increased work of breath Abdomen: Positive bowel sounds, soft, nontender, nondistended, no organomegaly Extremities: No edema cyanosis clubbing Skin: no rash, nodule, warm and dry Neuro:CN 2 -12 intact, motor/sensory intact, speech delayed due to respiratory distress - Constitutional Vitals: Temp Pulse Resp BP Pulse Ox 98.9 F 83 15 120/86 98 07/08/19 11:00 07/08/19 20:08 07/08/19 20:08 07/08/19 14:01 07/08/19 20:23 Results - Labs CBC & Chem 7: 07/08/19 04:05 07/08/19 04:05 Labs: Laboratory Last Values WBC 4.5 K/mm3 (4.5-11.0) 07/08/19 04:05 RBC 4.02 M/mm3 (3.65-5.03) 07/08/19 04:05 Hgb 12.5 gm/dl (10.1-14.3) 07/08/19 04:05 Hct 38.1 % (30.3-42.9) 07/08/19 04:05 MCV 95 fl (79-97) 07/08/19 04:05 MCH 31 pg (28-32) 07/08/19 04:05 MCHC 33 % (30-34) 07/08/19 04:05 RDW 14.4 % (13.2-15.2) 07/08/19 04:05 Plt Count 223 K/mm3 (140-440) 07/08/19 04:05 Lymph % (Auto) 13.3 % (13.4-35.0) L 07/08/19 04:05 [place] % (Auto) 2.1 % (0.0-7.3) 07/08/19 04:05 Eos % (Auto) 0.0 % (0.0-4.3) 07/08/19 04:05 Baso % (Auto) 0.4 % (0.0-1.8) 07/08/19 04:05 Lymph # 0.6 K/mm3 (1.2-5.4) L 07/08/19 04:05 [place] # 0.1 K/mm3 (0.0-0.8) 07/08/19 04:05 Eos # 0.0 K/mm3 (0.0-0.4) 07/08/19 04:05 Baso # 0.0 K/mm3 (0.0-0.1) 07/08/19 04:05 Seg Neutrophils % 84.2 % (40.0-70.0) H 07/08/19 04:05 Seg Neutrophils # 3.8 K/mm3 (1.8-7.7) 07/08/19 04:05 POC ABG pH 7.312 (7.35-7.45) L 07/07/19 09:14 POC ABG pCO2 68.0 (35-45) H 07/07/19 09:14 POC ABG pO2 84 (80-105) 07/07/19 09:14 POC ABG HCO3 34.4 (22-26 mml/L) 07/07/19 09:14 POC ABG Total CO2 36 (23-27mmol/L) 07/07/19 09:14 POC ABG O2 Sat 95 07/07/19 09:14 POC ABG Base Excess 8 ((-2) - (+3)mmol/L) 07/07/19 09:14 40 % 07/07/19 09:14 Sodium 137 mmol/L (137-145) 07/08/19 04:05 Potassium 5.2 mmol/L (3.6-5.0) H 07/08/19 04:05 Chloride 99.3 mmol/L (98-107) 07/08/19 04:05 Carbon Dioxide 32 mmol/L (22-30) H 07/08/19 04:05 11 mmol/L 07/08/19 04:05 BUN 9 mg/dL (7-17) 07/08/19 04:05 0.3 mg/dL (0.7-1.2) L 07/08/19 04:05 Estimated GFR > 60 ml/min 07/08/19 04:05 30 % 07/08/19 04:05 Glucose 111 mg/dL (65-100) H 07/08/19 04:05 Calcium 8.5 mg/dL (8.4-10.2) 07/08/19 04:05 56 units/L (30-135) 07/08/19 12:05 CK-MB (CK-2) 2.1 ng/mL (0.0-4.0) 07/08/19 12:05 CK-MB (CK-2) Rel Index 3.7 (0-4) 07/08/19 12:05 < 0.010 ng/mL (0.00-0.029) 07/08/19 12:05 NT-Pro-B Natriuret Pep 111.5 pg/mL (0-900) 07/07/19 08:08 Active Medications - Current Medications Current Medications: Generic Name Dose Route Start Last Admin Trade Name Freq PRN Reason Stop Dose Admin Acetaminophen 650 mg 07/07/19 11:00 07/07/19 22:39 Tylenol PO 650 mg Q4H PRN Administration Pain MILD(1-3)/Fever >100.5/DE LEON Albuterol 2.5 mg 07/07/19 12:00 Proventil IH Q4HRT PRN Shortness Of Breath Albuterol/Ipratropium 1 ampul 07/07/19 14:00 07/08/19 17:33 Duoneb *Not For Prn Use* IH Not Given Q6HRT ELLIE Arformoterol Tartrate 15 mcg 07/07/19 20:00 07/08/19 20:08 Brovana Nebu IH 15 mcg Q12HRT ELLIE Administration Budesonide 0.5 mg 07/07/19 20:00 07/08/19 20:08 Pulmicort IH 0.5 mg Q12HRT ELLIE Administration Enoxaparin Sodium 40 mg 07/07/19 12:00 07/08/19 09:22 Lovenox SUB-Q 40 mg QDAY@1000 ELLIE Administration Famotidine 10 mg 07/07/19 11:00 07/08/19 09:22 Pepcid PO 10 mg BID ELLIE Administration Azithromycin 500 mg/ Sodium 250 mls @ 250 mls/hr 07/07/19 11:30 07/08/19 10:59 Chloride IV 250 mls/hr Q24HR ELLIE Administration Protocol Methylprednisolone Sodium Succinate 80 mg 07/07/19 14:00 07/08/19 13:05 Solu-Medrol IV 80 mg Q8HR ELLIE Administration Miscellaneous Medication 1 each 07/08/19 13:00 Emtricitabine/Tenofov Alafenam [Descovy 200-25 Mg Tablet] PO DAILY ELLIE Miscellaneous Medication 1 mg 07/08/19 13:00 Emtricitabine/Tenofov Alafenam [Descovy 200-25 Mg Tablet] PO QDAY ELLIE Naloxone HCl 0.1 mg 07/07/19 11:00 Narcan 0.4 Mg/1 Ml IV Q2MIN PRN Res Rate </= 8 or 02 SAT < 92% Nicotine 14 mg 07/07/19 10:00 07/08/19 09:22 Habitrol TD 14 mg QDAY ELLIE Administration Ondansetron HCl 4 mg 07/07/19 11:00 07/07/19 12:47 Zofran IV 4 mg Q8H PRN Administration Nausea And Vomiting Oxycodone/Acetaminophen 1 tab 07/08/19 12:47 07/08/19 19:08 Percocet 5/325 PO 1 tab Q6H PRN Administration Pain, Moderate (4-6) Sodium Chloride 10 ml 07/07/19 10:00 07/08/19 09:23 Sodium Chloride Flush Syringe 10 Ml IV 10 ml BID ELLIE Administration Sodium Chloride 10 ml 07/07/19 11:00 Sodium Chloride Flush Syringe 10 Ml IV PRN PRN LINE FLUSH
[2019-07-09] MEDS: PEPCID PO SCH ×3 (00:05→22:01)
[2019-07-09] MEDS: SOLU-Medrol IV SCH ×4 (00:05→22:01)
[2019-07-09] MEDS: SODIUM CHLORIDE FLUSH SYRINGE 10 ML IV SCH ×3 (00:05→22:01)
[2019-07-09] MEDS: DUONEB *Not for PRN Use IH SCH ×5 (01:03→20:10)
[2019-07-09 07:03] LABS: Hematocrit 38.5 % (30.3-42.9); Hemoglobin 12.6 gm/dl (10.1-14.3); Mean Corpuscular HGB Conc 33 % (30-34); Mean Corpuscular Volume 94 fl (79-97); Platelet Count 301 K/mm3 (140-440); Red Blood Count 4.08 M/mm3 (3.65-5.03); Red Cell Distribution Width 14.3 % (13.2-15.2)
[2019-07-09 07:29] LABS: BUN/Creatinine Ratio 30; Blood Urea Nitrogen 9 mg/dL (7-17); Calcium 8.6 mg/dL (8.4-10.2); Hemolysis Index 4
[2019-07-09] MEDS: PULMICORT IH SCH ×2 (08:01→20:10)
[2019-07-09] MEDS: BROVANA NEBU IH SCH ×2 (08:02→20:10)
[2019-07-09] MEDS: HABITROL TD SCH (09:52)
[2019-07-09] MEDS: LOVENOX SUB-Q SCH (09:53)
[2019-07-09] MEDS: PERCOCET 5/325 PO PRN ×2 (10:21→19:16)
[2019-07-09] MEDS: ZITHROMAX 500 MG in NACL 0.9% 250ML 250 ML IV SCH (10:22)
--- NOTE | 2019-07-09 11:09 | Progress Note ---
Assessment and Plan Acute chronic obstructive pulmonary disease exacerbation. Possible occult pneumonia. Abnormal CT scan that is chronic. HIV positive. [id number] hypoxemic respiratory failure. History of lung cancer. History of breast cancer - continue supplemental oxygen and wean to keep O2 sat's > 90% - continue bronchodilators (CHASTITY & LABA) with pulmonary hygiene per RT - complete empiric AB's therapy - continue inhaled and systemic steroids (tapered to 60 mg IV q8h) - continue GI & VTE prophylaxis - outpatient pulmonary clinic f/up re: COPD & lung Cancer - tobacco Abstinence counseled at bedside again - continue other care per attending / other consultants ... re-evaluate in am & prn Subjective Date of service: 07/09/19 Principal diagnosis: AE-COPD; Possible occult pneumonia; HIV positive; hypoxemic resp failure Interval history: Patient is seen today for: Acute COPD exacerbation; Possible occult pneumonia; Abnormal CT scan that is chronic; HIV positive; [id number] hypoxemic respiratory failure; History of lung cancer; History of breast cancer. Seen and examined at bedside; 24hour events reviewed; nursing and respiratory care staff consulted; no adverse overnight events reported to me; resting peacefully in bed; feels better; denies acute chest pains or palpitations; No N/V/F/C; + expectoration of non bloody phlegm Objective Vital Signs - 12hr 07/08/19 07/09/19 07/09/19 23:28 05:32 08:02 Temperature 98.0 F 98.1 F Pulse Rate 75 83 Pulse Rate [ 81 Anterior Bilateral Throughout] Respiratory 18 18 Rate Respiratory 20 Rate [Anterior Bilateral Throughout] Blood Pressure 122/84 108/72 O2 Sat by Pulse 98 100 99 Oximetry Constitutional: alert, other (elderly looking AAF, normocephalic with mildy increased resp effort at rest) Eyes: non-icteric ENT: oropharynx moist, other (mallampati 2) Neck: supple, no lymphadenopathy, no JVD, other (left EJ line) Effort: mildly labored Ascultation: Bilateral: diminished breath sounds, rhonchi (bases L>R) Percussion: Bilateral: not dull Cardiovascular: regular rate and rhythm Gastrointestinal: normoactive bowel sounds, soft, non-tender, non-distended Integumentary: normal Extremities: no cyanosis, no edema, pulses normal, no ischemia or petechiae Neurologic: normal mental status, non-focal exam, pupils equal and round, CN II- XII normal, motor strength normal and Psychiatric: mood appropriate, affect normal CBC and BMP: 07/09/19 05:45 07/09/19 05:45 ABG, PT/INR, D-dimer: ABG POC ABG pH 7.312 (7.35-7.45) L 07/07/19 09:14 POC ABG pCO2 68.0 (35-45) H 07/07/19 09:14 POC ABG pO2 84 (80-105) 07/07/19 09:14 POC ABG HCO3 34.4 (22-26 mml/L) 07/07/19 09:14 POC ABG Total CO2 36 (23-27mmol/L) 07/07/19 09:14 POC ABG O2 Sat 95 07/07/19 09:14 Abnormal lab findings: Abnormal Labs 07/07/19 07/07/19 07/07/19 08:08 08:08 09:14 Lymph % (Auto) [place] % (Auto) 9.9 H Lymph # [place] # 1.0 H Seg Neutrophils % POC ABG pH 7.312 L POC ABG pCO2 68.0 H Potassium Chloride Carbon Dioxide 36 H BUN 4 L Creatinine 0.4 L Glucose 07/08/19 07/08/19 07/09/19 04:05 04:05 05:45 Lymph % (Auto) 13.3 L [place] % (Auto) Lymph # 0.6 L [place] # Seg Neutrophils % 84.2 H POC ABG pH POC ABG pCO2 Potassium 5.2 H Chloride 96.7 L Carbon Dioxide 32 H 37 H BUN Creatinine 0.3 L 0.3 L Glucose 111 H 106 H Chest x-ray: image reviewed (no acute process) Allied health notes reviewed: nursing
--- NOTE | 2019-07-09 15:25 | Progress Note ---
Assessment and Plan - Patient Problems (1) COPD exacerbation Current Visit: Yes Status: Acute Plan to address problem: At present patient has advanced COPD most likely stage III. Gold. We'll start patient on empiric antibiotics. Steroid inhalers as well as LABA and CHASTITY. Treating for underlying pneumonia. Patient still short of breath decreased breath sounds. (2) Shortness of breath Current Visit: Yes Status: Acute (3) Breast cancer Current Visit: No Status: Acute Plan to address problem: We'll follow-up with oncology. (4) History of HIV infection Current Visit: No Status: Acute Plan to address problem: Resume antiretroviral medications. (5) History of cancer Current Visit: No Status: Acute (6) Malnutrition Current Visit: Yes Status: Acute Plan to address problem: Patient with severe protein deficiency malnutrition. Secondary to chronic disease. History Interval history: Patient wants full change. Patient also states pain is not optimally controlled. Very upset about meals. Shortness of breath improved. Patient on home O2. Hospitalist Physical - Constitutional Vitals: Temp Pulse Resp BP Pulse Ox 97.2 F L 84 20 128/80 100 07/09/19 12:01 07/09/19 13:19 07/09/19 13:19 07/09/19 12:01 07/09/19 12:01 General appearance: Present: mild distress - EENT Eyes: Present: PERRL, EOM intact ENT: hearing intact, clear oral mucosa, dentition normal, poor dentition, no oropharyngeal erythema, no thrush, no ulcerations - Neck Neck: Present: supple, normal ROM. Absent: rigidity, enlarged thyroid, masses or JVD - Respiratory Respiratory: bilateral: diminished, wheezing - Cardiovascular Heart rate: 99 Rhythm: regular - Extremities Extremities: no ischemia, pulses intact, No edema, normal temperature, Full ROM Peripheral Pulses: abnormal - Abdominal General gastrointestinal: soft, non-tender, hypoactive bowel sounds, hepatomegaly, splenomegaly, other (scaphoid) - Integumentary Integumentary: Present: clear, warm, dry - Psychiatric Psychiatric: appropriate mood/affect, intact judgment & insight, agitated - Neurologic Neurologic: CNII-XII intact, no focal deficits, moves all extremities Results - Labs CBC & Chem 7: 07/09/19 05:45 07/09/19 05:45 Labs: Laboratory Last Values WBC 8.7 K/mm3 (4.5-11.0) 07/09/19 05:45 RBC 4.08 M/mm3 (3.65-5.03) 07/09/19 05:45 Hgb 12.6 gm/dl (10.1-14.3) 07/09/19 05:45 Hct 38.5 % (30.3-42.9) 07/09/19 05:45 MCV 94 fl (79-97) 07/09/19 05:45 MCH 31 pg (28-32) 07/09/19 05:45 MCHC 33 % (30-34) 07/09/19 05:45 RDW 14.3 % (13.2-15.2) 07/09/19 05:45 Plt Count 301 K/mm3 (140-440) 07/09/19 05:45 Lymph % (Auto) 13.3 % (13.4-35.0) L 07/08/19 04:05 [place] % (Auto) 2.1 % (0.0-7.3) 07/08/19 04:05 Eos % (Auto) 0.0 % (0.0-4.3) 07/08/19 04:05 Baso % (Auto) 0.4 % (0.0-1.8) 07/08/19 04:05 Lymph # 0.6 K/mm3 (1.2-5.4) L 07/08/19 04:05 [place] # 0.1 K/mm3 (0.0-0.8) 07/08/19 04:05 Eos # 0.0 K/mm3 (0.0-0.4) 07/08/19 04:05 Baso # 0.0 K/mm3 (0.0-0.1) 07/08/19 04:05 Seg Neutrophils % 84.2 % (40.0-70.0) H 07/08/19 04:05 Seg Neutrophils # 3.8 K/mm3 (1.8-7.7) 07/08/19 04:05 POC ABG pH 7.312 (7.35-7.45) L 07/07/19 09:14 POC ABG pCO2 68.0 (35-45) H 07/07/19 09:14 POC ABG pO2 84 (80-105) 07/07/19 09:14 POC ABG HCO3 34.4 (22-26 mml/L) 07/07/19 09:14 POC ABG Total CO2 36 (23-27mmol/L) 07/07/19 09:14 POC ABG O2 Sat 95 07/07/19 09:14 POC ABG Base Excess 8 ((-2) - (+3)mmol/L) 07/07/19 09:14 40 % 07/07/19 09:14 Sodium 142 mmol/L (137-145) 07/09/19 05:45 Potassium 3.8 mmol/L (3.6-5.0) D 07/09/19 05:45 Chloride 96.7 mmol/L (98-107) L 07/09/19 05:45 Carbon Dioxide 37 mmol/L (22-30) H 07/09/19 05:45 12 mmol/L 07/09/19 05:45 BUN 9 mg/dL (7-17) 07/09/19 05:45 0.3 mg/dL (0.7-1.2) L 07/09/19 05:45 Estimated GFR > 60 ml/min 07/09/19 05:45 30 % 07/09/19 05:45 Glucose 106 mg/dL (65-100) H 07/09/19 05:45 Calcium 8.6 mg/dL (8.4-10.2) 07/09/19 05:45 56 units/L (30-135) 07/08/19 12:05 CK-MB (CK-2) 2.1 ng/mL (0.0-4.0) 07/08/19 12:05 CK-MB (CK-2) Rel Index 3.7 (0-4) 07/08/19 12:05 < 0.010 ng/mL (0.00-0.029) 07/08/19 12:05 NT-Pro-B Natriuret Pep 111.5 pg/mL (0-900) 07/07/19 08:08 - Imaging and Cardiology Chest x-ray: image reviewed Active Medications - Current Medications Current Medications: Generic Name Dose Route Start Last Admin Trade Name Freq PRN Reason Stop Dose Admin Acetaminophen 650 mg 07/07/19 11:00 07/07/19 22:39 Tylenol PO 650 mg Q4H PRN Administration Pain MILD(1-3)/Fever >100.5/DE LEON Albuterol 2.5 mg 07/07/19 12:00 Proventil IH Q4HRT PRN Shortness Of Breath Albuterol/Ipratropium 1 ampul 07/07/19 14:00 07/09/19 13:19 Duoneb *Not For Prn Use* IH 1 ampul Q6HRT ELLIE Administration Arformoterol Tartrate 15 mcg 07/07/19 20:00 07/09/19 08:02 Brovana Nebu IH 15 mcg Q12HRT ELLIE Administration Budesonide 0.5 mg 07/07/19 20:00 07/09/19 08:01 Pulmicort IH 0.5 mg Q12HRT ELLIE Administration Enoxaparin Sodium 40 mg 07/07/19 12:00 07/09/19 09:53 Lovenox SUB-Q 40 mg QDAY@1000 ELLIE Administration Famotidine 10 mg 07/07/19 11:00 07/09/19 09:52 Pepcid PO 10 mg BID ELLIE Administration Azithromycin 500 mg/ Sodium 250 mls @ 250 mls/hr 07/07/19 11:30 07/09/19 10:22 Chloride IV 250 mls/hr Q24HR ELLIE Administration Protocol Methylprednisolone Sodium Succinate 60 mg 07/09/19 14:00 07/09/19 14:10 Solu-Medrol IV 60 mg Q8HR ELLIE Administration Miscellaneous Medication 1 each 07/09/19 17:00 Non-Formulary PO QPM@1700 ELLIE Naloxone HCl 0.1 mg 07/07/19 11:00 Narcan 0.4 Mg/1 Ml IV Q2MIN PRN Res Rate </= 8 or 02 SAT < 92% Nicotine 14 mg 07/07/19 10:00 07/09/19 09:52 Habitrol TD 14 mg QDAY ELLIE Administration Ondansetron HCl 4 mg 07/07/19 11:00 07/07/19 12:47 Zofran IV 4 mg Q8H PRN Administration Nausea And Vomiting Oxycodone/Acetaminophen 1 tab 07/08/19 12:47 07/09/19 10:21 Percocet 5/325 PO 1 tab Q6H PRN Administration Pain, Moderate (4-6) Sodium Chloride 10 ml 07/07/19 10:00 07/09/19 10:23 Sodium Chloride Flush Syringe 10 Ml IV 10 ml BID ELLIE Administration Sodium Chloride 10 ml 07/07/19 11:00 Sodium Chloride Flush Syringe 10 Ml IV PRN PRN LINE FLUSH Nutrition/Malnutrition Assess - Attestation Statement I have reviewed and agreed w/ Malnutrition eval & tx plan: Yes (severe protein deficiency malnutrition.)
[2019-07-09] MEDS ORDERED: NON-FORMULARY PO SCH (17:00)
[2019-07-09] MEDS ORDERED: TIVICAY PO SCH (17:00)
[2019-07-10] MEDS: DUONEB *Not for PRN Use IH SCH ×4 (03:49→13:39)
[2019-07-10] MEDS: SOLU-Medrol IV SCH (05:45)
[2019-07-10] MEDS: PERCOCET 5/325 PO PRN (06:22)
[2019-07-10] MEDS: PULMICORT IH SCH (08:01)
[2019-07-10] MEDS: BROVANA NEBU IH SCH (08:02)
[2019-07-10] MEDS: ZOFRAN IV PRN (09:46)
[2019-07-10] MEDS: PEPCID PO SCH (09:48)
[2019-07-10] MEDS: LOVENOX SUB-Q SCH (09:48)
[2019-07-10] MEDS: HABITROL TD SCH (09:49)
[2019-07-10] MEDS: SODIUM CHLORIDE FLUSH SYRINGE 10 ML IV SCH (09:49)
[2019-07-10] MEDS: ZITHROMAX 500 MG in NACL 0.9% 250ML 250 ML IV SCH (09:52)
--- NOTE | 2019-07-10 11:59 | Progress Note ---
Assessment and Plan Acute chronic obstructive pulmonary disease exacerbation. Possible occult pneumonia. Abnormal CT scan that is chronic. HIV positive. [id number] hypoxemic respiratory failure. History of lung cancer. History of breast cancer - continue inhaled and systemic steroids (tapered further to 40 mg IV q12h) - continue supplemental oxygen and wean to keep O2 sat's > 90% - continue bronchodilators (CHASTITY & LABA) with pulmonary hygiene per RT - complete empiric AB's therapy - continue GI & VTE prophylaxis - outpatient pulmonary clinic f/up re: COPD & lung Cancer - tobacco Abstinence counseled at bedside again - continue other care per attending / other consultants ... re-evaluate in am & prn Subjective Date of service: 07/10/19 Principal diagnosis: AE-COPD; Possible occult pneumonia; HIV positive; hypoxemic resp failure Interval history: Patient is seen today for: Acute COPD exacerbation; Possible occult pneumonia; Abnormal CT scan that is chronic; HIV positive; [id number] hypoxemic respiratory failure; History of lung cancer; History of breast cancer. Seen and examined at bedside; 24hour events reviewed; nursing and respiratory care staff consulted; no adverse overnight events reported to me; resting peacefully in bed; Objective Vital Signs - 12hr 07/10/19 07/10/19 07/10/19 03:51 05:15 08:02 Temperature 98.2 F Pulse Rate [ 81 Anterior Bilateral Throughout] Pulse Rate [ 88 Posterior Bilateral Throughout] Respiratory 24 Rate Respiratory 20 Rate [Anterior Bilateral Throughout] Respiratory 20 Rate [Posterior Bilateral Throughout] Blood Pressure 129/81 [Left] O2 Sat by Pulse 100 100 Oximetry Constitutional: alert, other (elderly looking AAF, normocephalic with mildy increased resp effort at rest) Eyes: non-icteric ENT: oropharynx moist, other (mallampati 2) Neck: supple, no lymphadenopathy, no JVD, other (left EJ line) Effort: mildly labored Ascultation: Bilateral: diminished breath sounds, rhonchi (bases L>R) Percussion: Bilateral: not dull Cardiovascular: regular rate and rhythm Gastrointestinal: normoactive bowel sounds, soft, non-tender, non-distended Integumentary: normal Extremities: no cyanosis, no edema, pulses normal, no ischemia or petechiae Neurologic: normal mental status, non-focal exam, pupils equal and round, CN II- XII normal, motor strength normal and Psychiatric: mood appropriate, affect normal CBC and BMP: 07/09/19 05:45 07/09/19 05:45 ABG, PT/INR, D-dimer: ABG POC ABG pH 7.312 (7.35-7.45) L 07/07/19 09:14 POC ABG pCO2 68.0 (35-45) H 07/07/19 09:14 POC ABG pO2 84 (80-105) 07/07/19 09:14 POC ABG HCO3 34.4 (22-26 mml/L) 07/07/19 09:14 POC ABG Total CO2 36 (23-27mmol/L) 07/07/19 09:14 POC ABG O2 Sat 95 07/07/19 09:14 Abnormal lab findings: Abnormal Labs 07/07/19 07/07/19 07/07/19 08:08 08:08 09:14 Lymph % (Auto) Swain % (Auto) 9.9 H Lymph # Swain # 1.0 H Seg Neutrophils % POC ABG pH 7.312 L POC ABG pCO2 68.0 H Potassium Chloride Carbon Dioxide 36 H BUN 4 L Creatinine 0.4 L Glucose 07/08/19 07/08/19 07/09/19 04:05 04:05 05:45 Lymph % (Auto) 13.3 L Swain % (Auto) Lymph # 0.6 L Swain # Seg Neutrophils % 84.2 H POC ABG pH POC ABG pCO2 Potassium 5.2 H Chloride 96.7 L Carbon Dioxide 32 H 37 H BUN Creatinine 0.3 L 0.3 L Glucose 111 H 106 H Allied health notes reviewed: nursing
[2019-07-10] MEDS ORDERED: SOLU-Medrol IV SCH (12:00)
[2019-07-10 13:15] VITALS: BP 118/80
--- NOTE | 2019-07-10 13:34 | Discharge Summary ---
Providers - Providers Date of Admission: 07/07/19 09:13 Date of discharge: 07/10/19 Attending physician: LUPE NICHOLS 07/07/19 09:29 Consult to Physician [CONS] Routine Comment: DR PEDROZA CAME TO SEE PT IN ER Consulting Provider: AUGUSTUS ANDRES Physician Instructions: Reason For Exam: COPD EXACERBATION Primary care physician: AMINAH GEORGE Hospitalization Condition: Poor Hospital course: Patient chronically ill female for advanced COPD presents with acute COPD exacerbation. Patient defervesced well over the next 2 days. Oxygenation fine. Wean down O2 to 2 L at home. Also has a history of lung cancer also underlying pneumonia acute bronchitis. Disposition: DC-01 TO HOME OR SELFCARE - Discharge Diagnoses (1) COPD exacerbation Status: Acute Comment: Resolving. We'll discharge patient on long steroid taper. SAB A and LA BA. pt is on 3 l home 02. Continue antibiotic coverage for another 7 days. (2) Shortness of breath Status: Acute (3) Breast cancer Status: Acute Comment: f u oncology (4) History of HIV infection Status: Acute Comment: cont antiretrovirals (5) History of cancer Status: Acute (6) Malnutrition Status: Acute Comment: Multifactorial supplements protein supplements have been added. Core Measure Documentation - Palliative Care Palliative Care/ Comfort Measures: Not Applicable - Core Measures Any of the following diagnoses?: none Exam - Constitutional Vitals: Temp Pulse Resp BP Pulse Ox 98.7 F 83 18 118/80 98 07/10/19 12:00 07/10/19 12:00 07/10/19 12:00 07/10/19 12:00 07/10/19 12:00 General appearance: Present: no acute distress, cachectic - EENT Eyes: Present: PERRL ENT: hearing intact, clear oral mucosa, poor dentition, no thrush, no ulcerations - Neck Neck: Present: supple, normal ROM. Absent: rigidity, enlarged thyroid, masses or JVD, cervical LAD, carotid bruits - Respiratory Respiratory effort: normal Respiratory: right: rales, bilateral: diminished (chronically), wheezing - Cardiovascular Heart Sounds: Present: S1 & S2. Absent: rub, click - Extremities Extremities: pulses symmetrical, No edema Peripheral Pulses: within normal limits - Abdominal General gastrointestinal: Present: soft, non-tender, non-distended, normal bowel sounds Female genitourinary: Present: normal - Integumentary Integumentary: Present: clear, warm, dry - Musculoskeletal Musculoskeletal: gait normal, strength equal bilaterally - Psychiatric Psychiatric: appropriate mood/affect, intact judgment & insight - Neurologic Neurologic: CNII-XII intact, moves all extremities Plan Activity: fall precautions Weight Bearing Status: Weight Bear as Tolerated Diet: regular Follow up with: PRIMARY CARE,MD [Referring] - 3-5 Days Prescriptions: Arformoterol Nebu [Brovana Nebu] 15 mcg IH Q12HRT #1 ml Nicotine [Habitrol] 14 mg TD QDAY #10 patch oxyCODONE /ACETAMINOPHEN [Percocet 5/325 mg] 2 tab PO Q6H PRN #30 tablet PRN Reason: Pain, Moderate (4-6) Prednisone [predniSONE 10 mg (6-Day Pack, 21 Tabs)] 10 mg PO .TAPER #1 tab.ds.pk ALBUTEROL Inhaler (OR & NICU) [ProAir HFA Inhaler] 2 puff IH QID PRN #1 inhalation PRN Reason: Shortness Of Breath Budesonide [Pulmicort Respules] 0.5 mg IH Q12HRT #1 nebu Azithromycin [Zithromax TAB] 500 mg PO QDAY #7 tablet
== END 2019-07-10 15:54 | disposition home or self-care (01) | DRG 189 ==
LOC: ED 07:24 → 4A 09:13 → IMCU 13:54 → 3A 07-08 15:53
PROVIDERS: ADMIT Internal Medicine; ATTEND Internal Medicine
PROC: 4A033R1 Measurement of Arterial Saturation, Peripheral, Percutaneous Approach (ICD-10-PCS; principal; 2019-07-07)
PROC: 5A09357 Assistance with Respiratory Ventilation, Less than 24 Consecutive Hours, Continuous Positive Airway Pressure (ICD-10-PCS; 2019-07-07)
PROC: 05HY33Z Insertion of Infusion Device into Upper Vein, Percutaneous Approach (ICD-10-PCS; 2019-07-07)
DX: J96.21 Acute and chronic respiratory failure with hypoxia (principal); J44.1 Chronic obstructive pulmonary disease with (acute) exacerbation; J20.9 Acute bronchitis, unspecified; J44.0 Chronic obstructive pulmonary disease with (acute) lower respiratory infection; E43 Unspecified severe protein-calorie malnutrition; B19.20 Unspecified viral hepatitis C without hepatic coma; E87.5 Hyperkalemia; F17.200 Nicotine dependence, unspecified, uncomplicated; I10 Essential (primary) hypertension; J45.901 Unspecified asthma with (acute) exacerbation; Z90.11 Acquired absence of right breast and nipple; Z82.49 Family history of ischemic heart disease and other diseases of the circulatory system; Z79.51 Long term (current) use of inhaled steroids; Z88.0 Allergy status to penicillin; Z85.118 Personal history of other malignant neoplasm of bronchus and lung; Z68.33 Body mass index [BMI] 33.0-33.9, adult; Z85.3 Personal history of malignant neoplasm of breast; Z79.899 Other long term (current) drug therapy; Z21 Asymptomatic human immunodeficiency virus [HIV] infection status
CPT/HCPCS: 36415; 71045; 80048; 82550; 82553; 82803; 83880; 84484; 85025; 85027; 93005; 93010; 93306; 94640; 94644; 94760; 96365; 96375; G0378; J0456; J1650; J2405; J2920; J2930; J3246; J3475; J7050